=== PATIENT | female | born 1985 | race Caucasian/White ===

== ENCOUNTER → 2018-09-05 12:56 | Outpatient (CLI) | payer BC, SELFPAY ==
--- NOTE | 2018-09-05 13:00 | US_ITS ---
US OB /maternal detail: INDICATION: ITS.REASON: US OB Complete ORDERING PHYSICIAN: Krista Holm MD PATIENT AGE: 33 years TECHNIQUE: ultrasound transabdominal scanning. COMPARISON: No previous relevant studies. FINDINGS: Single viable intrauterine gestation. Breech position. Placenta: Anterior placenta grade 1. There is average amount fluid. The cervix appears satisfactory. Closed and measuring 3.5 cm in length. Complete survey performed and was unremarkable on the submitted images as in PACS. No discrete anomalies identified on survey imaging by technologist. Active fetus. Three-vessel cord with satisfactory umbilical cord insertion. 4- chamber heart noted. Nonspecific echogenic focus in the left ventricle of questionable clinical significance Survey of brain & ventricles unremarkable. Face and neck survey unremarkable. Diaphragm and chest views unremarkable. Abdomen: Both kidneys noted and unremarkable. Stomach noted and satisfactory. Spine: Survey of the spine satisfactory with no anomalies identified nor imaged. Both arms and legs noted. Amniotic Fluid: Adequate. Maternal adnexa: No significant findings. Measurements: Average ultrasound age 20w4d. Gestational Age 20w3d. Estimated due date by ultrasound age 0401/19/2019. Estimated weight 359 grams. BPD = 20w5d OFD = 21w1d HC = 20w2d AC = 20w6d FL = 20w3d Growth Percentile= 51% Heart Rate = 136 Cerebellum = 20w4d Humerus = 21w0d HC/AC is 1.14 (1.09-1.26). CI is 76% (70-86%). FL/BPD is 68%. FL/AC is 21%. IMPRESSION: There is a single live fetus which is in breech presentation. Average ultrasound age is 20 weeks and 4 days. All parameters correlate. heart and body motion noted. Echogenic intracardiac focus noted which is nonspecific. Otherwise unremarkable 20 week ultrasound Anterior grade 1 placenta
== END ==
PROVIDERS: PCP Obstetrics & Gynecology; Visit Provider Obstetrics & Gynecology
DX: Z36.0 Encounter for antenatal screening for chromosomal anomalies (principal)
CPT/HCPCS: 76811

== ENCOUNTER → 2018-10-18 08:49 | Outpatient (CLI) | payer BC, SELFPAY | PROVIDERS: Visit Provider Obstetrics & Gynecology | DX: Z34.90 Encounter for supervision of normal pregnancy, unspecified, unspecified trimester (principal) | CPT/HCPCS: 36415; 82947 ==

== ENCOUNTER → 2018-12-21 17:13 | Outpatient (CLI) | payer OTHER, SELFPAY | PROVIDERS: Visit Provider Obstetrics & Gynecology | DX: Z34.90 Encounter for supervision of normal pregnancy, unspecified, unspecified trimester (principal) | CPT/HCPCS: 86403 ==

== ENCOUNTER 2019-01-18 02:55 | Inpatient (IN) ==
[2019-01-18 06:16] LABS: Basophils % 0.7 % (0.1-2.0); Eosinophils # 0.1 K/mm3 (0.0-0.4); Eosinophils % 1.1 % (0.1-12.0); Hematocrit 34.8 % (37.0-47.0); Hemoglobin 11.1 g/dL (12.2-16.2); Lymphocytes # 1.5 K/mm3 (0.7-4.5); Mean Corpuscular HGB Conc 31.8 g/dL (31.8-35.4); Mean Corpuscular Hemoglobin 25.5 pg (27.0-31.2); Mean Corpuscular Volume 80.3 fl (81-99); Mean Platelet Volume 8.2 fl (7.4-10.4); Monocytes # 0.4 K/mm3 (0.1-1.0); Monocytes % 6.1 % (1.7-9.3); Neutrophils % 67.2 % (37.0-80.0); Platelet Count 230 K/mm3 (142-424); Red Blood Count 4.33 M/mm3 (4.20-5.40); Red Cell Distribution Width 14.6 % (11.5-17.5)
--- NOTE | 2019-01-18 13:39 | Progress Note ---
[facility] Anesthesia Checklist - Structural Data Admitted From: Inpatient Planned Operative Procedure/s: labor epidural Consent for Planned Operative Procedure(s) Verified: Yes - Airway Assessment C-Spine Mobility Assessed: Yes TMJ Mobility Assessed: Yes Dentition: Good Dentition - Neurological Assessment Level of Consciousness: Awake, Alert, Appropriate - Anesthesia Plan Anesthesia Risk discussed: Yes Anesthesia Plan: Verified ASA Class: II Anesthesia Type: Epidural [facility] History I have reviewed the patient's past medical history: Yes Medical History: Reports:: Migraine Denies:: Anxiety, Depression, Seizures *Have you ever received a pneumonia vaccine?: No *Have you received a flu vaccine this season?: No Other Surgeries: No: Amputation: No Fractures: No - *Social History Smoking Status: Never smoker Alcohol Intake: never Substance Use Type: denies use *Occupational Status:: employed - Psychiatric History Pschychiatric History:: Denies:: Anxiety, Depression Family Hx:: No significant family history Para: 6
[2019-01-18 17:35] LABS: Microscopic, Urine URINE MICROSCOPIC (MICROSCOPIC)
[2019-01-18 17:37] LABS: Appearance,Urine CLEAR (Clear); Bilirubin,Urine Negative (Negative); Blood, Urine Negative (Negative); Color,Urine YELLOW (Yellow); Glucose,Urine (UA) Negative (Negative); Ketones,Urine TRACE (Negative); Leukocyte Esterase,Urine Negative (Negative); Protein,Urine Negative (Negative); Specific Gravity, Urine <= 1.005 (1.005-1.030); Urobilinogen,Urine 0.2 EU/dl (0.2)
--- NOTE | 2019-01-18 17:50 | History & Physical Report ---
OB - H&P: HPI Antepartum - History of Present Illness Chief complaint: IOL History of present illness: 33 year old @ 39 11/16 admitted for IOL. complicated by grand multiparity, AMA, mild anemia and vulvar varicosities. 20 week ultrasound showed isolated echogenic cardiac focus and she declined f/u with MFM for subsequent evaluation. She has a history of 6 previous vaginal deliveries and a 4th degree laceration with G1 delivery. care [facility] Dr. Holm after transfer from [place]; previous records received and reviewed. - History of Present Criteria for establishing EDC:: LMP confirmed by 1st trimester US care: good care [facility] History I have reviewed the patient's past medical history: Yes Medical History: Reports:: Migraine Denies:: Anxiety, Depression *Have you ever received a pneumonia vaccine?: No *Have you received a flu vaccine this season?: No Other Surgeries: No: Amputation: No Fractures: No - *Social History Smoking Status: Never smoker Alcohol Intake: never Substance Use Type: denies use *Occupational Status:: employed *Travel in the last 8 weeks: None - Psychiatric History Pschychiatric History:: Denies:: Anxiety, Depression Family Hx:: No significant family history Para: 6 Review of Systems - Review of Systems CONSTITUTIONAL: no fever/chills HEENT: no oral lesions PULMONARY: no shortness of breath or difficulty breathing CV: no racing heart, palpitations or chest pain ABD: no abdominal pain, N/V : irregular contractions SKIN: no new rash or skin lesions EXT: 1+ edema NEURO: no mental status changes PSYCH: no anxiety/depression Meds Home Medications Medication Instructions Recorded Confirmed Type 1 tab PO DAILY 07/13/18 01/18/19 History vitamin,calcium,alauuhuj-rvau-gxsuk acid tablet magnesium 250 mg tablet 250 mg PO DAILY 11/08/18 01/18/19 History Allergies Allergy/AdvReac Type Severity Reaction Status Date / Time hydrocodone Allergy Mild Verified 01/15/19 08:50 paroxetine Allergy Mild Verified 01/15/19 08:50 OB - H&P: Exam - Physical Exam Vital signs: Temp Pulse Resp BP Pulse Ox 97.9 F 77 20 128/62 100 01/18/19 06:10 01/18/19 06:10 01/18/19 06:10 01/18/19 06:10 01/18/19 06:10 Narrative: CONSTITUTIONAL: no acute distress HEENT: mucous membranes moist PULMONARY: breathing unlabored without audible wheezes CV: no tachycardia or visible JVD; normal LE peripheral pulses ABD: soft, NT/ND, no guarding. Gravid uterus. : cervix 3/50/-1. AROM with copious clear fluid. IUPC and FSE placed w ithout difficulty. SKIN: no visible rash or lesions HEME: no lymphadenopathy EXT: 1+ edema LEs NEURO: alert/oriented, no altered mental status PSYCH: appropriate mood and demeanor without visible anxiety/depression NST: Basline: 150 Variability: moderate Accelerations: yes Decelerations: no Impression: Reactive, Category 1 OB - Results - Labs Labs: Short CBC 01/18/19 Range/Units 06:00 WBC 6.0 (4.8-10.8) K/mm3 Hgb 11.1 L (12.2-16.2) g/dL Hct 34.8 L (37.0-47.0) % Plt Count 230 (142-424) K/mm3 OB - A/P Antepartum (1) 39 weeks gestation of Current visit: Yes Status: Acute (2) Grand multiparity with current Problem details: Current visit: No Status: Acute (3) AMA (advanced maternal age) multigravida 35+ Current visit: No Status: Acute (4) Vulvar varices during Current visit: No Status: Acute (5) echogenic intracardiac focus on ultrasound Current visit: No Status: Acute (6) History of fourth degree perineal laceration Problem details: G1 Current visit: No Status: Acute (7) Anemia affecting Current visit: Yes Status: Acute - Additional Plan Additional Information:: Admission for IOL S/P amniotomy; continue pitocin augmentation Continuous monitoring Anticipate
--- NOTE | 2019-01-18 18:00 | Procedure Note ---
- Delivery Note Delivery Date:: 01/18/19 Delivery Time:: 16:15 Anesthesia Type: Epidural Was labor medically induced?: Yes Induction method: per pitocin protocol Gestational age (weeks): 39 delivered prior to 39 weeks?: No Gender: Female at 1 minute: 9 at 5 minutes: 9 Delivery Procedure:: Spontaneous vaginal delivery of vigorous liveborn over intact perineum. Apgars: 9 & 9 Delivery uncomplicated; no nuchal cord or shoulder dystocia with delivery Infant taken to warmer for nursing assessment and suction immediately after umbilical cord clamped/cut Placenta spontaneously expressed and examined; noted to be complete/intact. Vulva, vagina, and cervix inspected; first degree laceration repaired with 3-0 vicryl for hemostasis. EBL: 200cc All sponge/needle/instrument counts correct at conclusion of procedure Disposition: Mom/baby stable to recovery in LDRP Laceration:: vaginal Placental Delivery Description: Spontaneous
[2019-01-18 18:03] LABS: Bacteria,Urine Trace /lpf; WBC,Urine Occasional #/hpf (0-3)
[2019-01-19 06:59] LABS: Hematocrit 27.8 % (37.0-47.0)
--- NOTE | 2019-01-19 13:09 | Progress Note ---
Internal Medicine - PN: Subj *Date: 01/19/19 *Time: 13:07 Interval history: PPD #1 No complaints Tolerating regular diet, ambulating and voiding without difficulty Lochia normal Exam Vital signs and Labs for Last 24 Hours: Temp Pulse Resp BP Pulse Ox 97.9 F 77 20 128/62 100 01/18/19 06:10 01/18/19 06:10 01/18/19 06:10 01/18/19 06:10 01/18/19 06:10 Laboratory Results - last 24 hr 01/18/19 12:35: Urine Color Yellow, Urine Appearance Clear, Urine pH 7.0, Ur Specific [place] <= 1.005, Urine Protein Negative, Urine Glucose (UA) Negative, Urine Ketones Trace, Urine Blood Negative, Urine Nitrate Negative, Urine Bilirubin Negative, Urine Urobilinogen 0.2, Ur Leukocyte Esterase Negative, Urine WBC Occasional, Urine Bacteria Trace 01/19/19 06:37: Hgb 9.0 L, Hct 27.8 L I & O for Last 24 hours: Intake & Output 01/17/19 01/18/19 01/19/19 01/20/19 11:59 11:59 11:59 11:59 Weight 184 lb Narrative: CONSTITUTIONAL: no acute distress HEENT: mucous membranes moist PULMONARY: breathing unlabored without audible wheezes CV: no tachycardia or visible JVD; normal LE peripheral pulses ABD: soft, NT/ND, no guarding : fundus firm at/below umbilicus SKIN: no visible rash or lesions EXT: 1+ edema LEs NEURO: alert/oriented, no altered mental status PSYCH: appropriate mood and demeanor without visible anxiety/depression Assessment and Plan (1) 39 weeks gestation of Current visit: Yes Status: Acute Category: Medical Code(s): Z3A.39 - 39 weeks gestation of (2) Grand multiparity with current Problem details: Current visit: No Status: Acute Category: Medical Code(s): O09.40 - Supervision of with grand multiparity, unspecified trimester (3) AMA (advanced maternal age) multigravida 35+ Current visit: No Status: Acute Category: Medical Code(s): O09.529 - Supervision of elderly multigravida, unspecified trimester (4) Vulvar varices during Current visit: No Status: Acute Category: Medical Code(s): O87.8 - Other venous complications in the puerperium; I86.3 - Vulval varices (5) echogenic intracardiac focus on ultrasound Current visit: No Status: Acute Category: Medical Code(s): O28.3 - Abnormal ultrasonic finding on screening of mother (6) History of fourth degree perineal laceration Problem details: G1 Current visit: No Status: Acute Category: Medical Code(s): Z87.59 - Personal history of other complications of , childbirth and the puerperium (7) Anemia affecting Current visit: Yes Status: Acute Category: Medical Code(s): O99.019 - Anemia complicating , unspecified trimester (8) Vaginal delivery Current visit: Yes Status: Acute Category: Medical Code(s): O80 - Encounter for full-term uncomplicated delivery - Assessment and plan all Dx Assessment and Plan for all problems:: Continue routine care Anticipate discharge home tomorrow
[2019-01-19 21:42] VITALS: BP 124/66
--- NOTE | 2019-01-20 11:21 | Discharge Summary ---
General - General Admission date:: 01/18/19 Discharge date: 01/20/19 HPI HPI: 33 yo admitted for IOL at 39 2/7 S/P without complications course uneventful, with normal progress Ambulating and voiding without difficulty; tolerating regular diet Lochia appropriate Asymptomatic with bbfaj-ys-vcpozjl anemia Ready for discharge home on PPD #2 Hospital Course Hospital Course: see HPI Rhogam Administration: Not Indicated Objective Vital signs: Temp Pulse Resp BP Pulse Ox 98.1 F 65 18 124/66 98 01/19/19 20:16 01/19/19 20:16 01/19/19 20:16 01/19/19 20:16 01/19/19 20:16 Narrative: CONSTITUTIONAL: no acute distress HEENT: mucous membranes moist PULMONARY: breathing unlabored without audible wheezes CV: no tachycardia or visible JVD; normal LE peripheral pulses ABD: soft, NT/ND, no guarding : fundus firm at/below umbilicus SKIN: no visible rash or lesions EXT: 1+ edema LEs NEURO: alert/oriented, no altered mental status PSYCH: appropriate mood and demeanor without anxiety/depression DS: Diagnosis - Discharge Diagnosis (1) 39 weeks gestation of Status: Acute (2) Grand multiparity with current Status: Acute Problem details: (3) AMA (advanced maternal age) multigravida 35+ Status: Acute (4) Vulvar varices during Status: Acute (5) echogenic intracardiac focus on ultrasound Status: Acute (6) History of fourth degree perineal laceration Status: Acute Problem details: G1 (7) Anemia affecting Status: Acute Discharge Plan - Patient Discharge Instructions ACTIVITY: Continue current activity DIET: continue same diet - Follow up Plan Disposition: Home, Self-Alf Medications: Home Medications Medication Instructions Recorded Confirmed Type 1 tab PO DAILY 07/13/18 01/18/19 History vitamin,calcium,azibspjj-ycov-lbxns acid tablet magnesium 250 mg tablet 250 mg PO DAILY 11/08/18 01/18/19 History Ibuprofen [Motrin 400mg 800 mg PO Q6HP PRN #30 tab 01/20/19 Rx tablet] Oxycodone HCl [OxyIR 5mg tablet] 10 mg PO Q4HP PRN #30 tab 01/20/19 Rx Prescriptions/Medication Reconciliation: New Ibuprofen [Motrin 400mg tablet] 800 mg PO Q6HP PRN #30 tab PRN Reason: Moderate Pain Oxycodone HCl [OxyIR 5mg tablet] 10 mg PO Q4HP PRN #30 tab PRN Reason: Severe Pain Continue vitamin,calcium,cuvlmqaq-hyom-qzwla acid tablet 1 tab PO DAILY magnesium 250 mg tablet 250 mg PO DAILY
== END 2019-01-20 14:40 | disposition home or self-care (01) | DRG 807 ==
LOC: OB 05:24
PROVIDERS: ADMIT Obstetrics & Gynecology; ATTEND Obstetrics & Gynecology
CPT/HCPCS: C1758

== ENCOUNTER 2020-07-26 11:13 | Emergency (ER) | payer OTHER, SELFPAY ==
[2020-07-26 11:23] VITALS: BP 113/83; PULSE 90; RESP 21; TEMP 37; O2SAT 99; BMI 24.0
--- NOTE | 2020-07-26 11:31 | HMH.EDUTC ---
[facility] Disposition Clinical Impression: Bronchitis Sinusitis Qualifiers: Sinusitis location: unspecified location Chronicity: unspecified Qualified Code(s): J32.9 - Chronic sinusitis, unspecified Disposition: Home, Self-Care Condition on Discharge: Good Instructions: Sinusitis, Acute Bronchitis, DI for Sinusitis Additional Instructions: ? Start antibiotic today. Be sure to complete entire prescription even if feeling better ? Monitor temp. Tylenol every 4 hours as needed and / or ibuprofen every 6 hours as needed ( As long as your primary care physician has told you that it ok to take both. For fever/aches/pains ER if no less than 101 despite Tylenol or Motrin ? Humidifier/vaporizer or hot steamy shower ? Mucinex during the day for your cough and cough suppressant only at night. Be sure to drink lots of water. Insurance may not cover a prescriptions for mucinex. Might be cheaper to get 400mg tablets and take 2 tablet in the morning, mid-day and evening with lots of water. Start steroid today. Helps with inflammation therefore, cough and wheezing. Follow directions on the package. Reviewed side effects. Patient reports taking them before. Follow up IMMEDIATELY for new or worsening of symptoms OR no noticeable improvement over the next 48-72 hours. 911 immediately for any life threatening symptoms such as chest pain or difficulty breathing Prescriptions: Fluticasone Propionate [Flonase 50mcg nasal spray 16gm] 1 spr NS DAILY #1 bottle Transmission Status: Received by [facility] # methylPREDNISolone [Medrol 4mg tab] 4 mg PO DIRECTED #21 tab Transmission Status: Received by [facility] # Azithromycin [Z-Jose Miguel 250mg Tab] 250 mg PO DIRECTED #6 tab Transmission Status: Received by [facility] # Referrals: PCP,No [Primary Care Provider] - As needed Forms: Work/School Release Time of Disposition: 11:40 Medical Decision Making - Herman Inquiry Pt receiving controlled substance: No Herman was queried for this patient: No Vital Signs: 07/26/20 11:23 Temperature 98.6 F Temperature Source Oral Pulse Rate [Radial] 90 Respiratory Rate 21 Blood Pressure [Right Arm] 113/83 Blood Pressure Mean [Right Arm] 93 Blood Pressure Source [Right Arm] Automatic Cuff Blood Pressure Position [Right Arm] Sitting 02 Sat by Pulse Oximetry 99 Oxygen Delivery Method Room Air - Lab Data Lab results reviewed: Yes: I reviewed the patient's lab results. Lab Results 07/26/20 11:33: Tst Clinic Negative Orders (Tests/Meds): ED MEDICATIONS Discontinued Medications Generic Name Dose Route Start Last Admin Trade Name Hailey PRN Reason Stop Dose Admin Ceftriaxone Sodium 1 gm 07/26/20 11:49 07/26/20 11:50 Ceftriaxone 1gm Vial IM 07/26/20 11:50 1 gm ONCE ONE Administration Protocol Lidocaine HCl 0 ml 07/26/20 11:49 07/26/20 11:50 Lidocaine 1% 5ml Pf Vial IM 07/26/20 11:50 2.1 ml ONCE ONE Administration Medical Decision Narrative: discussed CXR and patient declined at this time Advised is symptoms worsened to follow up for CXR and further treatment [facility] HPI - General Stated complaint: Congestion Time Seen by Provider: 07/26/20 11:31 Mode of Arrival: Ambulatory Source of Information: Patient Limitations: No Limitations Description of Symptoms (Recalled from Triage Doc. by RN): chest congestion, cough, sob since tuesday HEENT Symptoms (Recalled from RN notes): Yes Resp Symptoms (Recalled from RN notes): No Skin Symptoms (Recalled from RN notes): No MS Symptoms (Recalled from RN notes): No Functional Status (Recalled from RN notes): wnl - History of Present Illness Provider Complaint: Patient states that she has been having sinus pain and pressure, cough, drainage unable to breath out of her nose and feels like it is moving into her chest States that she hasnt felt well since Tue Denies known fever. States that she isnt coughing anythi
[2020-07-26 11:55] LABS: UTC Pregnancy Test, Urine Negative (Negative)
[2020-07-26 12:03] VITALS: BP 113/83; PULSE 90; RESP 21; TEMP 37; O2SAT 99
== END 2020-07-26 12:04 | disposition home or self-care (01) ==
PROVIDERS: Emergency Provider Nurse Practitioner
DX: J32.9 Chronic sinusitis, unspecified (principal); G43.709 Chronic migraine without aura, not intractable, without status migrainosus; Z88.5 Allergy status to narcotic agent
CPT/HCPCS: 81025; 96372; 99201

== ENCOUNTER → 2020-08-13 10:29 | Outpatient (CLI) | payer OTHER, SELFPAY ==
[2020-08-13 10:54] LABS: Basophils % 0.9 % (0.1-2.0); Eosinophils # 0.1 K/mm3 (0.0-0.4); Eosinophils % 3.4 % (0.1-12.0); Hematocrit 37.8 % (37.0-47.0); Hemoglobin 11.1 g/dL (12.2-16.2); Lymphocytes % 28.4 % (10-50); Mean Corpuscular HGB Conc 29.4 g/dL (31.8-35.4); Mean Corpuscular Hemoglobin 25.7 pg (27.0-31.2); Mean Corpuscular Volume 87.6 fl (81-99); Mean Platelet Volume 8.9 fl (7.4-10.4); Monocytes # 0.2 K/mm3 (0.1-1.0); Monocytes % 5.7 % (1.7-9.3); Neutrophils # 2.3 K/mm3 (1.8-7.8); Neutrophils % 61.6 % (37.0-80.0); Platelet Count 275 K/mm3 (142-424); Red Blood Count 4.31 M/mm3 (4.20-5.40); Red Cell Distribution Width 15.3 % (11.5-17.5); White Blood Count 3.7 K/mm3 (4.8-10.8)
[2020-08-13 13:31] LABS: Chloride 104 mmol/L (98-107)
[2020-08-13 13:32] LABS: Potassium 4.5 mmoL/L (3.5-5.1); Sodium 138 mmol/L (136-145)
[2020-08-13 13:34] LABS: Alanine Aminotransferase 14 U/L (12-78); Albumin/Globulin Ratio 1.7 (1.1-1.8); Alkaline Phosphatase 33 U/L (38-126); Anion Gap 11.5 mEq/L (5-15); Aspartate Amino Transferase 22 U/L (14-36); Bilirubin,Total 0.3 mg/dl (0.2-1.3); Blood Urea Nitrogen 13 mg/dl (7-17); Carbon Dioxide 27 mmol/L (22.0-30.0); Cholesterol 159 mg/dl (140-200); Estimated Glomerular Filt Rate 94 ml/min (>60); GFR (African American) 114 ML/MIN (>60); Globulin 2.3 g/dL (1.3-3.2); Total Protein,Serum 6.3 g/dl (6.3-8.2); Triglycerides 29 mg/dl (30-150); VLDL Cholesterol 6 mg/dL (0-40)
[2020-08-13 13:35] LABS: Calcium 8.9 mg/dl (8.4-10.2); Chol/HDL Ratio 1.8 (1-3.5); Glucose 90 mg/dl (74-100); Glucose,Fasting 90 mg/dl (74-100); HDL Cholesterol 86 mg/dl (40-60)
[2020-08-13 13:46] LABS: Direct LDL Cholesterol 61.18 mg/dL (100-129)
[2020-08-13 14:03] LABS: Thyroid Stimulating Hormone 1.31 uIU/mL (0.465-4.68)
[2020-08-14 11:47] LABS: FSH 6.5 mIU/mL (.); LH 21.1 mIU/mL (.)
== END ==
PROVIDERS: Visit Provider Obstetrics & Gynecology
DX: Z00.00 Encounter for general adult medical examination without abnormal findings (principal); R09.89 Other specified symptoms and signs involving the circulatory and respiratory systems
CPT/HCPCS: 36415; 80053; 80061; 82670; 82947; 83001; 83002; 84443; 85025

== ENCOUNTER → 2020-11-28 17:42 | Outpatient (CLI) | payer OTHER, SELFPAY ==
[2020-11-28 18:12] LABS: Basophils % 0.6 % (0.1-2.0); Eosinophils # 0.1 K/mm3 (0.0-0.4); Eosinophils % 1.5 % (0.1-12.0); Hematocrit 37.3 % (37.0-47.0); Hemoglobin 11.6 g/dL (12.2-16.2); Lymphocytes # 1.6 K/mm3 (0.7-4.5); Lymphocytes % 26.8 % (10-50); Mean Corpuscular HGB Conc 31.1 g/dL (31.8-35.4); Mean Corpuscular Hemoglobin 25.7 pg (27.0-31.2); Mean Corpuscular Volume 82.8 fl (81-99); Mean Platelet Volume 9.3 fl (7.4-10.4); Monocytes # 0.3 K/mm3 (0.1-1.0); Monocytes % 5.2 % (1.7-9.3); Neutrophils # 3.9 K/mm3 (1.8-7.8); Neutrophils % 65.9 % (37.0-80.0); Platelet Count 259 K/mm3 (142-424); Red Cell Distribution Width 15.6 % (11.5-17.5); White Blood Count 5.9 K/mm3 (4.8-10.8)
[2020-11-30 16:58] LABS: Progesterone 33.6 ng/mL (.); Rapid Plasma Reagin Ab Titer Non Reactive (NonRea<1:1)
[2020-12-01 10:33] LABS: HIV Screen 4th Generation wRfx Non Reactive (Non Reactive)
[2020-12-01 11:49] LABS: Hepatitis B Surface Antigen Negative (Negative); Hepatitis C Antibody <0.1 s/co ratio (0.0-0.9); Rubella Antibodies, IgG 1.55 index (Immune >0.99)
== END ==
PROVIDERS: Visit Provider Obstetrics & Gynecology
DX: Z34.90 Encounter for supervision of normal pregnancy, unspecified, unspecified trimester (principal)
CPT/HCPCS: 36415; 84144; 85025; 86592; 86703; 86762; 86850; 87340; 87380; G0432

== ENCOUNTER → 2020-12-11 12:55 | Outpatient (CLI) | payer OTHER, SELFPAY ==
--- NOTE | 2020-12-11 12:56 | US_ITS ---
PROCEDURE: US OB <= 14 WEEKS FETUS CLINICAL INDICATION: US OB Dates COMPARISON: US OBFEMAT US OB /maternal detail from 09/05/2018 FINDINGS: There is an intrauterine gestational sac present. The sac is somewhat irregular in shape. A yolk sac is present. There is an area measured as a pole however, this is uncertain. No heart tones are apparent. Moderate amount fluid is present anterior to the gestational sac and may represent hemorrhage. The there is a left corpus luteum cyst at 2.6 cm.. IMPRESSION: There is an intrauterine gestational sac which has somewhat irregular contour. A yolk sac is present however cannot confirm the definite presence of a pole. Cannot confirm viability at this time. Fluid is present anterior to the gestational sac as well. Suggest a follow-up ultrasound in 1 week as well as correlation with serial beta HCGs. Dictated by: Kurt Macias MD 12/11/2020 18:09 Kurt Macias MD in [place] 12/11/2020 18:09
[2020-12-11 15:47] LABS: HCG,Quantitative 27185 mIU/ml (0-5.42)
== END ==
PROVIDERS: PCP Obstetrics & Gynecology; Visit Provider Obstetrics & Gynecology
DX: O26.841 Uterine size-date discrepancy, first trimester (principal)
CPT/HCPCS: 36415; 76801; 84702

== ENCOUNTER → 2020-12-11 13:50 | Outpatient (CLI) | payer OTHER, SELFPAY | PROVIDERS: Visit Provider Obstetrics & Gynecology | DX: Z32.00 Encounter for pregnancy test, result unknown (principal) | CPT/HCPCS: 36415; 84702 ==

== ENCOUNTER → 2020-12-13 12:37 | Outpatient (CLI) | payer OTHER, SELFPAY ==
[2020-12-13 14:49] LABS: HCG,Quantitative 35529 mIU/ml (0-5.42)
== END ==
PROVIDERS: Visit Provider Obstetrics & Gynecology
DX: Z32.00 Encounter for pregnancy test, result unknown (principal)
CPT/HCPCS: 36415; 84702

== ENCOUNTER → 2020-12-18 10:25 | Outpatient (CLI) | payer OTHER, SELFPAY ==
--- NOTE | 2020-12-18 10:25 | US_ITS ---
PROCEDURE: US OB <= 14 WEEKS FETUS CLINICAL INDICATION: US OB- dates and viability f/u COMPARISON: US US OB <= 14 WEEKS FETUS from 12/11/2020 FINDINGS: An intrauterine gestational sac is present with a pole with a crown-rump length of 0.46cm correlating to gestational age of 6weeks 2days. heart tones are present with an FHR of 114bpm. Yolk sac is noted. There is persistent heterogeneous echogenicity along the superior aspect of the gestational sac. Gestational sac also has a somewhat irregular contour. A pole is identified at this time with a crown-rump length of 0.46 cm corresponding to a gestational age of 6 weeks and 2 days. heart tones are present. IMPRESSION: Live intrauterine gestation at 6 weeks 2 days. There is persistent subchorionic bleed superiorly with persistent mild irregularity of the gestational sac. Estimated due date by Ultrasound is 08/11/2021 Dictated by: Kurt Macias MD 12/18/2020 17:45 Kurt Macias MD in [facility] 12/18/2020 17:45
== END ==
PROVIDERS: PCP Obstetrics & Gynecology; Visit Provider Obstetrics & Gynecology
DX: O26.841 Uterine size-date discrepancy, first trimester (principal); O26.20 Pregnancy care for patient with recurrent pregnancy loss, unspecified trimester
CPT/HCPCS: 76801

== ENCOUNTER → 2021-01-23 10:18 | Outpatient (CLI) | payer OTHER, SELFPAY | PROVIDERS: PCP Obstetrics & Gynecology; Visit Provider Obstetrics & Gynecology | DX: O09.529 Supervision of elderly multigravida, unspecified trimester (principal) ==

== ENCOUNTER → 2021-01-30 09:31 | Outpatient (CLI) | payer OTHER, SELFPAY ==
--- NOTE | 2021-01-30 09:34 | US_ITS ---
PROCEDURE: US OB <= 14 WEEKS FETUS CLINICAL INDICATION: Vaginal bleeding COMPARISON: US US OB <= 14 WEEKS FETUS from 12/18/2020 FINDINGS: An intrauterine gestational sac is present with a pole with a crown-rump length of 6.71cm correlating to gestational age of 13weeks. heart tones are present with an FHR of 139bpm. There is an area of heterogeneous echogenicity along the inferior aspect of the placenta and may represent residual subchorionic hemorrhage. This measures approximately 5 x 5 cm and is in the lower uterine segment region. Placenta is posterior and there is a previa present at this time. IMPRESSION: Live IUP at 13 weeks. Residual subchorionic hemorrhage with placenta previa. Continued follow-up suggested. Estimated due date by Ultrasound is 08/07/2021 Dictated by: Kurt Macias MD 01/30/2021 18:34 Kurt Macias MD in [facility] 01/30/2021 18:34
== END ==
PROVIDERS: Visit Provider Obstetrics & Gynecology
DX: O20.9 Hemorrhage in early pregnancy, unspecified (principal); Z34.90 Encounter for supervision of normal pregnancy, unspecified, unspecified trimester
CPT/HCPCS: 76801

== ENCOUNTER → 2021-03-23 12:58 | Outpatient (CLI) | payer OTHER, SELFPAY ==
--- NOTE | 2021-03-23 12:58 | US_ITS ---
PROCEDURE: US OB >= 14 WEEKS FETUS CLINICAL INDICATION: OB complete COMPARISON: US US OB <= 14 WEEKS FETUS from 01/30/2021 FINDINGS: Single viable intrauterine gestation. Cephalic position. Placenta: Posteriorplacenta grade 1. There is average amount fluid. The cervix appears satisfactory. Closed and measuring 4 centimeters in length. Complete survey performed and was unremarkable on the submitted images as in PACS. No discrete anomalies identified on survey imaging by technologist. Active fetus. Three-vessel cord with satisfactory umbilical cord insertion. 4- chamber heart noted. Survey of brain & ventricles Unremarkable. Face and neck survey unremarkable. Diaphragm and chest views unremarkable. Abdomen: Both kidneys noted and unremarkable. Stomach noted and satisfactory. Spine: Survey of the spine satisfactory with no anomalies identified nor imaged. Both arms and legs noted. Amniotic Fluid: Adequate. Maternal adnexa: No significant findings. Measurements: Average ultrasound age 19weeks 6days. Gestational Age 19weeks 6days Estimated due date by ultrasound age 1108/11/2021. Estimated weight 329g BPD = 19weeks 5days OFD = 20weeks 2days HC = 19weeks 2days AC = 20weeks 2days FL = 20weeks 1day Growth Percentile= 33Percent% Heart Rate = 144bpm Cerebellum = 20weeks 4days Humerus = 19weeks 6days HC/AC is 1.1 CI is 0.75 FL/BPD is 0.72 FL/AC is 0.22 IMPRESSION: Single living intrauterine fetus currently in cephalic presentation with composite ultrasound age of 19 weeks 6 days with BENI by ultrasound of 08/11/2021. face and neck were not adequately seen. This should be correlated upon follow-up obstetrical ultrasound. 5 millimeter choroid plexus cyst incidentally noted. Remainder of structures were adequately seen and normal in appearance. Dictated by: Kenny Henriquez 03/23/2021 15:45 Kenny Henriquez in [facility] 03/23/2021 15:45
== END ==
PROVIDERS: PCP Obstetrics & Gynecology; Visit Provider Obstetrics & Gynecology
DX: Z34.90 Encounter for supervision of normal pregnancy, unspecified, unspecified trimester (principal)
CPT/HCPCS: 76805

== ENCOUNTER → 2021-05-04 15:36 | Outpatient (CLI) | payer OTHER, SELFPAY ==
[2021-05-04 16:27] LABS: Basophils % 0.3 % (0.1-2.0); Eosinophils # 0.1 K/mm3 (0.0-0.4); Eosinophils % 1.4 % (0.1-12.0); Hematocrit 31.4 % (37.0-47.0); Hemoglobin 9.7 g/dL (12.2-16.2); Lymphocytes # 1.5 K/mm3 (0.7-4.5); Lymphocytes % 18.2 % (10-50); Mean Corpuscular Hemoglobin 25.9 pg (27.0-31.2); Mean Corpuscular Volume 83.5 fl (81-99); Mean Platelet Volume 8.3 fl (7.4-10.4); Monocytes # 0.4 K/mm3 (0.1-1.0); Monocytes % 5.3 % (1.7-9.3); Neutrophils # 5.9 K/mm3 (1.8-7.8); Neutrophils % 74.7 % (37.0-80.0); Platelet Count 249 K/mm3 (142-424); Red Blood Count 3.76 M/mm3 (4.20-5.40); White Blood Count 7.9 K/mm3 (4.8-10.8)
== END ==
PROVIDERS: Visit Provider Obstetrics & Gynecology
DX: Z34.90 Encounter for supervision of normal pregnancy, unspecified, unspecified trimester (principal)
CPT/HCPCS: 36415; 85025

== ENCOUNTER → 2021-07-06 17:00 | Outpatient (CLI) | payer OTHER, SELFPAY | PROVIDERS: Visit Provider Obstetrics & Gynecology | DX: Z34.90 Encounter for supervision of normal pregnancy, unspecified, unspecified trimester (principal) | CPT/HCPCS: 86403 ==

== ENCOUNTER → 2021-07-09 13:19 | Outpatient (CLI) | payer OTHER, SELFPAY ==
--- NOTE | 2021-07-09 13:19 | US_ITS ---
PROCEDURE: US OB FOLLOW UP CLINICAL INDICATION: Growth and MANE FINDINGS: The following parameters are obtained: Single live fetus is present in cephalic presentation. The cervix is closed measuring 3 cm in length. The placenta is posterior and lateral and grade 2. Average ultrasound age is Average 35weeks 6days Estimated due date by ultrasound is 08/07/2021. Estimated weight is 2,760g. This is 58th percentile BPD: 36weeks 5days OFD: 35 weeks 0 days HC: 35weeks 2days AC: 36weeks FL: 35weeks 3days heart rate: bpm. HC/AC: 0.98 Cephalic index: 0.83 FL/BPD: 0.76 FL/AC: 0.22 Amniotic fluid index: 14.4cm The femur length is 35weeks 3days No obvious anomalies evident. Previously there was a choroid plexus cyst not demonstrated on today's exam. IMPRESSION: Live IUP in cephalic presentation with an average ultrasound age 35 weeks 6 days and an estimated weight of 2760 g which is 58th percentile. MANE normal at 14 cm Please see above for detail Dictated by: Kurt Macias MD 07/09/2021 18:01 Kurt Macias MD in [facility] 07/09/2021 18:01
== END ==
PROVIDERS: PCP Obstetrics & Gynecology; Visit Provider Obstetrics & Gynecology
DX: O36.60X0 Maternal care for excessive fetal growth, unspecified trimester, not applicable or unspecified (principal)
CPT/HCPCS: 76816

== ENCOUNTER 2021-08-04 05:29 | Inpatient (IN) | payer OTHER, SELFPAY ==
[2021-08-04 05:39] VITALS: BMI 28.9
[2021-08-04 06:25] LABS: Coronavirus 19, PCR Not Detected (NotDetected); Influenza A, PCR Not Detected (NotDetected); Influenza B, PCR Not Detected (NotDetected); Microscopic, Urine URINE MICROSCOPIC (MICROSCOPIC)
[2021-08-04 06:30] LABS: Basophils % 0.6 % (0.1-2.0); Eosinophils # 0.1 K/mm3 (0.0-0.4); Eosinophils % 1.2 % (0.1-12.0); Hematocrit 35.6 % (37.0-47.0); Lymphocytes # 1.4 K/mm3 (0.7-4.5); Lymphocytes % 18.7 % (10-50); Mean Corpuscular Hemoglobin 26.8 pg (27.0-31.2); Mean Corpuscular Volume 86.3 fl (81-99); Mean Platelet Volume 9.9 fl (7.4-10.4); Monocytes # 0.4 K/mm3 (0.1-1.0); Neutrophils # 5.7 K/mm3 (1.8-7.8); Neutrophils % 74.4 % (37.0-80.0); Platelet Count 228 K/mm3 (142-424); Red Blood Count 4.12 M/mm3 (4.20-5.40); Red Cell Distribution Width 19.5 % (11.5-17.5); White Blood Count 7.6 K/mm3 (4.8-10.8)
[2021-08-04 06:32] LABS: Appearance,Urine CLEAR (Clear); Bilirubin,Urine Negative (Negative); Blood, Urine TRACE-I (Negative); Color,Urine YELLOW (Yellow); Glucose,Urine (UA) Negative (Negative); Ketones,Urine Negative (Negative); Leukocyte Esterase,Urine 1+ (Negative); Nitrate,Urine Negative (Negative); Protein,Urine Negative (Negative); Urobilinogen,Urine 0.2 EU/dl (0.2)
[2021-08-04 06:42] LABS: Barbiturates Screen,Urine Negative ng/ml (<200)
[2021-08-04 06:43] LABS: Benzodiazepines Screen,Urine Negative ng/ml (<200)
[2021-08-04 06:47] LABS: Cannabinoid Screen,Urine Negative ng/ml (<50)
[2021-08-04 06:48] LABS: Cocaine Screen,Urine Negative ng/ml (<300)
[2021-08-04 06:49] LABS: Methadone Screen,Urine Negative ng/ml (<300); Opiate Screen,Urine Negative ng/ml (<300)
[2021-08-04 06:50] LABS: Phencyclidine Screen,Urine Negative ng/ml (<25)
[2021-08-04 06:52] LABS: Amphetamine/Metha Screen,Urine Negative ng/ml (<1000)
[2021-08-04 07:02] LABS: Amorphous Sediment,Urine 1+ /lpf; Bacteria,Urine 1+ /lpf
[2021-08-04 07:15] VITALS: BP 116/75; PULSE 84; RESP 17; TEMP 36.8; O2SAT 98
[2021-08-04 07:19] VITALS: BP 116/75; PULSE 84; RESP 17; TEMP 36.8; O2SAT 98; BMI 28.9
--- NOTE | 2021-08-04 07:26 | HMH.PHAINT ---
MEDICATION RECONCILIATION COMPLETED ON PATIENT USING EXTERNAL FILL HISTORY FROM PHARMACY AND LIST FROM OB OFFICE. -JOSE VENTURAD
--- NOTE | 2021-08-04 08:49 | HMH.HP ---
*Admission Date: 08/04/21 *Chief complaint: Induction of labor *History of present illness: 36 yo @ 39 10/16 admitted for elective induction of labor complicated by grandmultiparity, advanced maternal age, depression and anemia Successful medical management of depression with zoloft; taking ferrous sulfate for anemia Choroid plexus cyst noted on 20 week anatomy ultrasound but resolved on subsequent 34 week ultrasound Obstetrical history significant for previous 4th degree laceration [facility] History I have reviewed the patient's past medical history: Yes Medical History: Reports:: Depression, Migraine Denies:: Anxiety, Diabetes Mellitus Type 1, Hyperlipidemia, Hypertension, Seizures *Have you ever received a pneumonia vaccine?: No *Have you received a flu vaccine this season?: No Other Medical History: Reports: Anemia Other Surgeries: No: Amputation: No Fractures: No - *Social History Smoking Status: Never smoker Alcohol Intake: never Substance Use Type: denies use *Occupational Status:: employed *Travel in the last 8 weeks: None - Psychiatric History Pschychiatric History:: Denies:: Anxiety, Depression Family Hx:: No significant family history : 14 Para: 7 LMP comments: Review of Systems - Review of Systems Review of systems:: pertinent systems reviewed and negative unless documented below - Constitutional Reports fatigue - *Genitourinary Denies abnormal vaginal bleeding - Psychiatric Reports depression Meds Home Medications Medication Instructions Recorded Confirmed Type docusate sodium 100 mg capsule 100 mg PO DAILY 07/20/21 08/04/21 History omeprazole 20 mg capsule,delayed 20 mg PO DAILY 07/20/21 08/04/21 History release Ferrous Sulfate 325 mg PO DAILY 08/04/21 08/04/21 History Ondansetron [Zofran 4mg ODT] 4 mg PO Q4HP PRN 08/04/21 08/04/21 History Vit Calc,Iron,Folic [Kpn] 1 tab PO DAILY 08/04/21 08/04/21 History Sertraline HCl [Zoloft] 150 mg PO DAILY 08/04/21 08/04/21 History Allergies Allergy/AdvReac Type Severity Reaction Status Date / Time hydrocodone Allergy Mild Verified 07/27/21 08:42 paroxetine Allergy Mild Verified 07/27/21 08:42 Exam Vital signs and Labs for Last 24 Hours: Temp Pulse Resp BP Pulse Ox 98.3 F 84 17 116/75 98 08/04/21 07:19 08/04/21 07:19 08/04/21 07:19 08/04/21 07:19 08/04/21 07:19 Laboratory Results - last 24 hr 08/04/21 06:02: Urine Color Yellow, Urine Appearance Clear, Urine pH 7.0, Ur Specific [place] 1.020, Urine Protein Negative, Urine Glucose (UA) Negative, Urine Ketones Negative, Urine Blood Trace-i, Urine Nitrate Negative, Urine Bilirubin Negative, Urine Urobilinogen 0.2, Ur Leukocyte Esterase 1+ A, Urine RBC 3-5, Urine WBC 3-5, Ur Squamous Epith Cells 3-5, Amorphous Sediment 1+, Urine Bacteria 1+ 08/04/21 06:02: Urine Opiates Screen Negative, Urine Methadone Screen Negative, Ur Barbituates Screen Negative, Ur Phencyclidine Scrn Negative, Ur Amphetamines Screen Negative, U Benzodiazepines Scrn Negative, Urine Cocaine Screen Negative, U Marijuana (THC) Screen Negative 08/04/21 06:02: WBC 7.6, RBC 4.12 L, Hgb 11.0 L, Hct 35.6 L, MCV 86.3, MCH 26.8 L, MCHC 31.0 L, RDW 19.5 H, Plt Count 228, MPV 9.9, Neut % (Auto) 74.4, Lymph % (Auto) 18.7, [place] % (Auto) 5.0, Eos % (Auto) 1.2, Baso % (Auto) 0.6, Neut # (Auto) 5.7, Lymph # (Auto) 1.4, [place] # (Auto) 0.4, Eos # (Auto) 0.1, Baso # (Auto) 0.0 08/04/21 06:02: SARS-CoV-2 (PCR) Not detected, Influenza A Untype (PCR) Not detected, Influenza Type B (PCR) Not detected 08/04/21 06:02: Blood Type B Positive, Antibody Screen Negative I & O for Last 24 hours: Intake & Output 08/01/21 08/02/21 08/03/21 08/04/21 11:59 11:59 11:59 11:59 Weight 196 lb - Constitutional no acute distress - *Routine HEENT Exam Head: Present: normocephalic Eye: Absent: conjunctival icterus ENT: Present: mucous membranes moist - *Routine Neck Exam P
--- NOTE | 2021-08-04 09:43 | P.PN_ITS ---
[facility] Anesthesia Checklist - Patient Identification Patient Identification: Arm Band, Verbal (Name & ) - Structural Data Admitted From: Home Planned Operative Procedure/s: NILAM Consent for Planned Operative Procedure(s) Verified: Yes Verified Documents: Surgical Consent - NPO Status Verified Time NPO: 04:30 - Chart Verification Results Verified: CBC - Airway Assessment C-Spine Mobility Assessed: Yes TMJ Mobility Assessed: Yes Dentition: Good Dentition - Neurological Assessment Level of Consciousness: Awake, Alert, Appropriate - Anesthesia Plan Anesthesia Risk discussed: Yes ASA Class: II Anesthesia Type: Epidural [facility] History I have reviewed the patient's past medical history: Yes Medical History: Reports:: Depression, Migraine Denies:: Anxiety, Diabetes Mellitus Type 1, Hyperlipidemia, Hypertension, Seizures *Have you ever received a pneumonia vaccine?: No *Have you received a flu vaccine this season?: No Other Medical History: Reports: Anemia Anesthesia experience/problems:: no issues Other Surgeries: No: Amputation: No Fractures: No - *Social History Smoking Status: Never smoker Alcohol Intake: never Substance Use Type: denies use *Occupational Status:: employed *Travel in the last 8 weeks: None - Psychiatric History Pschychiatric History:: Reports:: Depression Denies:: Anxiety Family Hx:: No significant family history Para: 7 LMP comments:
[2021-08-04 11:35] VITALS: BP 107/73; PULSE 73; RESP 18; TEMP 36.6
--- NOTE | 2021-08-04 12:22 | HMH.LABNOT ---
Labor Note - Subjective: Date: 08/04/21 Time: 12:22 irregular contractions Comment:: comfortable with epidural - Objective: NST:: Reactive Contractions:: every 4-5 minutes Cervical Dilation:: 3 Effacement:: 50% Station: -2 Membranes: artificially ruptured Comment:: AROM with meconium stained fluid IUPC and FSE placed without difficulty or complication - Fetus: monitoring type:: Internal - Assessment: Patient Problems: All Active Problems Meconium in amniotic fluid (Acute) 39 weeks gestation of (Acute) Grand multiparity (Acute) Depression affecting (Acute) Choroid plexus cyst of fetus on ultrasound (Acute) Subchorionic hemorrhage in first trimester (Acute) AMA (advanced maternal age) multigravida 35+ (Acute) Anemia affecting (Acute) (Acute) Vulvar varicose veins (Acute) History of fourth degree perineal laceration (Acute) - Plan: Comment:: Continue pitocin augmentation Continuous monitoring
[2021-08-04 16:25] VITALS: BP 126/64; PULSE 76; RESP 18; TEMP 36.7; O2SAT 95
[2021-08-04 20:00] VITALS: BP 124/66; PULSE 80; RESP 18; TEMP 36.7; O2SAT 100
--- NOTE | 2021-08-04 20:14 | HMH.DN ---
- Delivery Note Delivery Date:: 08/04/21 Delivery Time:: 19:37 Anesthesia Type: Epidural Was labor medically induced?: Yes Induction method: per pitocin protocol Gestational age (weeks): 39 delivered prior to 39 weeks?: No Gender: Female at 1 minute: 8 at 5 minutes: 9 Delivery Procedure:: Spontaneous vaginal delivery of liveborn female infant over intact perineum. Delivery uncomplicated Nuchal cord x 2 reduced on perineum; no shoulder dystocia with delivery taken to warmer immediately after umbilical cord clamped/cut, with standard nursing assessment performed Peds in attendance at delivery, with cpap administration for respiratory retractions Infant Apgars: 8 & 9 Placenta spontaneously expressed and examined; noted to be complete/intact. Vulva, vagina, and cervix inspected; 1st degree perineal laceration repaired with 2-0 vicryl, anterior vaginal mucosa laceration repaired with 3-0 vicryl EBL: 300 cc All sponge/needle/instrument counts correct at conclusion of procedure Laceration:: vaginal Placental Delivery Description: Spontaneous
[2021-08-05 04:34] VITALS: BP 125/63; PULSE 74; RESP 16; TEMP 36.7; O2SAT 97
[2021-08-05 07:17] LABS: Hematocrit 33.6 % (37.0-47.0); Hemoglobin 10.4 g/dL (12.2-16.2)
[2021-08-05 10:27] LABS: POC Glucose,Bedside 60 (70-110)
--- NOTE | 2021-08-05 12:50 | HMH.ACPN2 ---
Internal Medicine - PN: Subj *Date: 08/05/21 *Time: 12:50 Interval history: PPD#1 labs appropriate tolerating regular diet, ambulating and voiding without difficulty lochia appropriate infant is doing well in room with mom, after requiring oxyhoood for few hours after delivery Exam Vital signs and Labs for Last 24 Hours: Temp Pulse Resp BP Pulse Ox 98.0 F 74 16 125/63 97 08/05/21 04:34 08/05/21 04:34 08/05/21 04:34 08/05/21 04:34 08/05/21 04:34 Laboratory Results - last 24 hr 08/04/21 06:02: Blood Type B Positive, Antibody Screen Negative, Crossmatch (AHG) See Detail 08/05/21 04:47: POC Glucose 60 L 08/05/21 06:30: Hgb 10.4 L, Hct 33.6 L I & O for Last 24 hours: Intake & Output 08/03/21 08/04/21 08/05/21 08/06/21 11:59 11:59 11:59 11:59 Weight 196 lb Microbiology Reports for the Last 24 Hours: Microbiology 08/04/21 06:02 Urine,Clean Catch Urine Culture - Preliminary NO GROWTH AFTER 24 HOURS Narrative: CONSTITUTIONAL: no acute distress HEENT: mucous membranes moist PULMONARY: breathing unlabored without audible wheezes CV: no tachycardia or visible JVD; normal LE peripheral pulses ABD: soft, NT/ND, no guarding : fundus firm at/below umbilicus SKIN: no visible rash or lesions EXT: 1+ edema LEs NEURO: alert/oriented, no altered mental status PSYCH: appropriate mood and demeanor Assessment and Plan (1) 39 weeks gestation of Status: Acute Category: Medical Code(s): Z3A.39 - 39 weeks gestation of (2) Grand multiparity Status: Acute Category: Medical Code(s): Z64.1 - Problems related to multiparity (3) AMA (advanced maternal age) multigravida 35+ Status: Acute Category: Medical Code(s): O09.529 - Supervision of elderly multigravida, unspecified trimester (4) Depression affecting Status: Acute Category: Medical Code(s): O99.340 - Other mental disorders complicating , unspecified trimester; F32.9 - Major depressive disorder, single episode, unspecified (5) Anemia affecting Status: Acute Category: Medical Code(s): O99.019 - Anemia complicating , unspecified trimester (6) History of fourth degree perineal laceration Problem details: G1 Status: Acute Category: Medical Code(s): Z87.59 - Personal history of other complications of , childbirth and the puerperium (7) Meconium in amniotic fluid Status: Acute Category: Medical Code(s): P96.83 - Meconium staining (8) Vaginal delivery Status: Acute Category: Medical Code(s): O80 - Encounter for full-term uncomplicated delivery - Assessment and plan all Dx Assessment and Plan for all problems:: routine care PNV with FeSO4 anticipate discharge home in am
[2021-08-05 20:36] VITALS: BP 139/73; PULSE 82; RESP 18; TEMP 36.6; O2SAT 97
[2021-08-06 04:15] VITALS: BP 123/75; PULSE 63; RESP 18; TEMP 37; O2SAT 98
--- NOTE | 2021-08-06 12:49 | HMH.DCSUM ---
General - General Admission date:: 08/04/21 Discharge date: 08/06/21 HPI HPI: 36 yo @ 39 10/16 admitted for elective induction of labor complicated by grandmultiparity, advanced maternal age, depression and anemia Successful medical management of depression with zoloft; taking ferrous sulfate for anemia Choroid plexus cyst noted on 20 week anatomy ultrasound but resolved on subsequent 34 week ultrasound Obstetrical history significant for previous 4th degree laceration Hospital Course Hospital Course: course uneventful asymptomatic with [id number] anemia tolerating regular diet ambulating and voiding without difficulty moderate pain with repair and vulvar/vaginal edema discharged home on PPD #2 in stable condition she will continue [id number] Rhogam Administration: Not Indicated Objective Vital signs: Temp Pulse Resp BP Pulse Ox 98.6 F 63 18 123/75 98 08/06/21 04:15 08/06/21 04:15 08/06/21 04:15 08/06/21 04:15 08/06/21 04:15 Narrative: CONSTITUTIONAL: no acute distress HEENT: mucous membranes moist PULMONARY: breathing unlabored without audible wheezes CV: no tachycardia or visible JVD; normal LE peripheral pulses ABD: soft, NT/ND, no guarding : fundus firm below umbilicus SKIN: no visible rash or lesions EXT: 1+ edema LEs NEURO: alert/oriented, no altered mental status PSYCH: appropriate mood and demeanor DS: Diagnosis - Discharge Diagnosis (1) 39 weeks gestation of Status: Acute (2) Grand multiparity Status: Acute (3) AMA (advanced maternal age) multigravida 35+ Status: Acute (4) Depression affecting Status: Acute (5) Anemia affecting Status: Acute (6) History of fourth degree perineal laceration Status: Acute Problem details: G1 (7) Meconium in amniotic fluid Status: Acute (8) Vaginal delivery Status: Acute Discharge Plan - Patient Discharge Instructions ACTIVITY: Continue current activity DIET: regular diet Additional Instructions: Nothing in the vagina for 6 weeks No tub baths for 6 weeks Drink plenty of fluids No strenuous activity Patient Instructions: Depression, Hemorrhage, DI for Labor and Delivery, Vaginal , DI for Pre-eclampsia, [facility] Post Discharge Instructions, Preventing the Spread of Coronavirus Discharge Instructions - Follow up Plan Follow up with: Holm,Krista, MD [Primary Care Provider] - Disposition: Home, Self-Care Condition at discharge:: Stable Home Medications: Home Medications Medication Instructions Recorded Confirmed Type docusate sodium 100 mg capsule 100 mg PO DAILY 07/20/21 08/04/21 History omeprazole 20 mg capsule,delayed 20 mg PO DAILY 07/20/21 08/04/21 History release Ferrous Sulfate 325 mg PO DAILY 08/04/21 08/04/21 History Ondansetron [Zofran 4mg ODT] 4 mg PO Q4HP PRN 08/04/21 08/04/21 History Vit Calc,Iron,Folic [Kpn] 1 tab PO DAILY 08/04/21 08/04/21 History Sertraline HCl [Zoloft] 150 mg PO DAILY 08/04/21 08/04/21 History Ibuprofen [Motrin 400mg 800 mg PO Q6HP PRN #40 tab 08/06/21 Rx tablet] Oxycodone HCl [OxyIR 5mg tablet] 7.5 mg PO Q4HP PRN #30 tablet 08/06/21 Rx Prescriptions/Medication Reconciliation: New Docusate Sodium [Docusate Sodium 100mg Cap] 100 mg PO DAILY capsule Oxycodone HCl [OxyIR 5mg tablet] 7.5 mg PO Q4HP PRN #30 tablet PRN Reason: Moderate Pain Ibuprofen [Motrin 400mg tablet] 800 mg PO Q6HP PRN #40 tab PRN Reason: Mild To Moderate Pain Acetaminophen [Acetaminophen 325mg tab] 650 mg PO Q4HP PRN tablet PRN Reason: Mild Pain Continued omeprazole 20 mg capsule,delayed release 20 mg PO DAILY docusate sodium 100 mg capsule 100 mg PO DAILY Sertraline HCl [Zoloft] 150 mg PO DAILY Vit Calc,Iron,Folic [Kpn] 1 tab PO DAILY Ondansetron [Zofran 4mg ODT
== END 2021-08-06 16:25 | disposition home or self-care (01) | DRG 807 ==
PROVIDERS: Admitting Provider Obstetrics & Gynecology; PCP Obstetrics & Gynecology; Visit Provider Obstetrics & Gynecology
DX: O69.81X0 Labor and delivery complicated by cord around neck, without compression, not applicable or unspecified (principal); Z37.0 Single live birth; O70.1 Second degree perineal laceration during delivery; Z3A.39 39 weeks gestation of pregnancy; O99.344 Other mental disorders complicating childbirth; F32.A Depression, unspecified; O99.02 Anemia complicating childbirth; Z87.59 Personal history of other complications of pregnancy, childbirth and the puerperium
CPT/HCPCS: 59409; 36415; 59025; 80305; 81001; 82962; 85014; 85018; 85025; 86850; 87086; 94761; C1758; C9803; G0283; U0003; U0005

== ENCOUNTER → 2021-10-22 09:32 | Outpatient (CLI) | payer OTHER, SELFPAY ==
--- NOTE | 2021-10-22 09:32 | US_ITS ---
FINAL REPORT CLINICAL HISTORY: DUB-- post bleeding x 12 wks FINDINGS: Transvaginal sonographic images of the pelvis were obtained. The uterus measures 7.2 x 3.6 x 7 cm. The endometrium measures 6 mm, which is within normal limits. No uterine mass is identified. The right ovary measures 2.7 cm in length and left ovary measures 4.2 cm in length. Normal blood flow seen to the ovaries. There is a 3 cm cyst in the left ovary. There is no evidence of free fluid. IMPRESSION: 3 cm left ovarian cyst. Reviewed, Interpreted and Dictated by Drew Garcia III, MD Transcribed by Baylee Moran Authenticated by Drew Garcia III, MD on 10/22/2021 01:12:23 PM [facility]
== END ==
PROVIDERS: PCP Obstetrics & Gynecology; Visit Provider Obstetrics & Gynecology
DX: N93.8 Other specified abnormal uterine and vaginal bleeding (principal)
CPT/HCPCS: 76830

== ENCOUNTER 2021-12-19 16:08 | Emergency (ER) | payer OTHER, SELFPAY ==
[2021-12-19 16:08] VITALS: BP 126/75; PULSE 84; RESP 16; TEMP 36.8; O2SAT 98; BMI 26.6
--- NOTE | 2021-12-19 16:33 | HMH.EDUTC ---
[facility] Disposition Clinical Impression: Strep throat Disposition: Home, Self-Care Condition on Discharge: Good Instructions: Strep Throat, DI for Strep Throat, Amoxicillin Additional Instructions: *Monitor Temp, Over the counter Motrin or Tylenol as directed/as needed Tylenol every 4 hours and Motrin every 6 hours (as long as your family doctor has told you that you can take it) for fever or pain. and straight to ER if unable to lower temp less than 101.0 after medication given *Warm salt water gargles may help to soothe the throat *Throat Lozenges *Warm fluids like tea with honey may help to soothe the throat *Sleep elevated *Humidifier/Vaporizer *If you did not take Penicillin shot or was unable to, start taking antibiotic immediately and make sure that you take it for the FULL length of time although you should start to feel better in 24-48 hours *change toothbrush and toothpaste 24-48 hours after starting to take antibiotics so you do not reinfect yourself Monitor Temp. Tylenol and/or Ibuprofen as needed. ER if fever is no less than 101 despite alternating Tylenol and Ibuprofen * Encourage fluids, water, Gatorade, powerade, pedialyte if /toddler/or child *Cold fluids, popsicles and ice cream may feel good on his throat Follow up IMMEDIATELY for new or worsening symptoms or no Noticeable improvement over the next 48-72 hours. 911 for difficulty breathing or swallowing Prescriptions: Amoxicillin [Amoxicillin 500mg Cap] 500 mg PO BID 10 Days #20 cap Transmission Status: Pending to [id number] Referrals: Provider,Referral, [Primary Care Provider] - As needed Time of Disposition: 16:43 Medical Decision Making - Herman Inquiry Pt receiving controlled substance: No Herman was queried for this patient: No Vital Signs: 12/19/21 16:08 Temperature 98.2 F Temperature Source Oral Pulse Rate [Right] 84 Respiratory Rate 16 Blood Pressure [Right Arm] 126/75 Blood Pressure Mean [Right Arm] 92 Blood Pressure Source [Right Arm] Automatic Cuff Blood Pressure Position [Right Arm] Sitting 02 Sat by Pulse Oximetry 98 Oxygen Delivery Method Room Air - Lab Data Lab results reviewed: Yes: I reviewed the patient's lab results. Lab Results 12/19/21 16:22: Strep Scn Rapid Clinic Positive A [facility] HPI - General Stated complaint: sore throat Time Seen by Provider: 12/19/21 16:33 Mode of Arrival: Ambulatory Source of Information: Patient Limitations: No Limitations Description of Symptoms (Recalled from Triage Doc. by RN): sore throat that started last night HEENT Symptoms (Recalled from RN notes): Yes (sore throat) Resp Symptoms (Recalled from RN notes): No Skin Symptoms (Recalled from RN notes): No MS Symptoms (Recalled from RN notes): No Functional Status (Recalled from RN notes): na - History of Present Illness Provider Complaint: Patient states that she started last night and has continued to get worse States that it has continued to get worse States that today she could barely swallow her sausage due to pain State that she was worried that she may have strep throat so she came in to get checked out - Related Data Previous Rx's Medication Instructions Recorded Ibuprofen [Motrin 400mg 800 mg PO Q6HP PRN #40 tab 08/06/21 tablet] cephalexin 500 mg tablet 500 mg PO TID 10 Days #30 tab 10/20/21 sertraline 100 mg tablet 150 mg PO DAILY #135 tab 10/27/21 Amoxicillin [Amoxicillin 500mg 500 mg PO BID 10 Days #20 cap 12/19/21 Cap] Allergies Allergy/AdvReac Type Severity Reaction Status Date / Time hydrocodone Allergy Mild Verified 09/21/21 09:56 paroxetine Allergy Mild Verified 09/21/21 09:56 - Worker's Comp Is this a Worker's Comp case?: No [facility] History - Hepatitis A Screen Drug use history?: No High risk sexual behaviors?: No History of sexually transmitted infection?: No Currently employed?: No Childcare worker?: No Do you have indoor plumbing?: Yes Do you
[2021-12-19 16:34] LABS: UTC Strep Screen (Rapid) Positive (Negative)
[2021-12-19 16:47] VITALS: BP 126/75; PULSE 84; RESP 16; TEMP 36.8; O2SAT 98
== END 2021-12-19 16:49 | disposition home or self-care (01) ==
PROVIDERS: Emergency Provider Nurse Practitioner
DX: J02.0 Streptococcal pharyngitis (principal); B95.0 Streptococcus, group A, as the cause of diseases classified elsewhere; D64.9 Anemia, unspecified; G43.909 Migraine, unspecified, not intractable, without status migrainosus; F32.A Depression, unspecified; Z79.1 Long term (current) use of non-steroidal anti-inflammatories (NSAID); Z79.899 Other long term (current) drug therapy; Z88.5 Allergy status to narcotic agent; Z88.6 Allergy status to analgesic agent
CPT/HCPCS: 87880; 99213; G0463

== ENCOUNTER → 2022-12-08 13:16 | Outpatient (CLI) | payer BC, SELFPAY ==
--- NOTE | 2022-12-08 13:16 | US_ITS ---
FINAL REPORT TECHNIQUE: Sonographic images of the pelvis were obtained transvaginally. CLINICAL HISTORY: dub. Heavy bleeding COMPARISON: 10/22/2021 FINDINGS: The uterus is anteverted and anteflexed. It measures 8.1 x 6.0 x 5.3 cm. The endometrial cavity is distended with fluid. Also within the endometrial cavity is echogenic material which could represent blood product. Less likely would be an unusual polyp. The endometrial stripe measures 8 mm. The myometrium is homogeneous. The cervix is closed. The right ovary measures 2.4 x 1.8 x 1.4 cm. It is normal in appearance. The left ovary measures 2.9 x 2.5 x 1.6 cm. It is normal in appearance. Color imaging to the ovaries is within normal limits. There is no free fluid. IMPRESSION: 1. Distension of the endometrial cavity with fluid and debris which may be blood product, an endometrial polyp is not excluded. Recommend correlation with beta AH CG 2 exclude possibility of . Consider follow-up exam in 6 weeks. Reviewed, Interpreted and Dictated by Monica Oneill MD Transcribed by Baylee Moran Authenticated and [facility]
[2022-12-08 14:21] LABS: Basophils # 0.1 K/mm3 (0-0.2); Basophils % 1.6 % (0.1-2.0); Eosinophils # 0.2 K/mm3 (0.0-0.4); Eosinophils % 3.9 % (0.1-12.0); Hematocrit 43.1 % (37.0-47.0); Hemoglobin 13.4 g/dL (12.2-16.2); Lymphocytes # 1.3 K/mm3 (0.7-4.5); Lymphocytes % 28.3 % (10-50); Mean Corpuscular Hemoglobin 29.9 pg (27.0-31.2); Mean Corpuscular Volume 96.3 fl (81-99); Monocytes # 0.3 K/mm3 (0.1-1.0); Monocytes % 5.8 % (1.7-9.3); Neutrophils # 2.9 K/mm3 (1.8-7.8); Neutrophils % 60.4 % (37.0-80.0); Platelet Count 282 K/mm3 (142-424); Red Blood Count 4.48 M/mm3 (4.20-5.40); Red Cell Distribution Width 13.9 % (11.5-17.5); White Blood Count 4.8 K/mm3 (4.8-10.8)
[2022-12-10 11:31] LABS: FSH 0.4 mIU/mL (.)
== END ==
PROVIDERS: PCP Obstetrics & Gynecology; Visit Provider Obstetrics & Gynecology
DX: N93.8 Other specified abnormal uterine and vaginal bleeding (principal); N93.9 Abnormal uterine and vaginal bleeding, unspecified; R09.89 Other specified symptoms and signs involving the circulatory and respiratory systems
CPT/HCPCS: 36415; 76830; 83001; 84443; 85025

== ENCOUNTER → 2022-12-13 11:10 | Outpatient (CLI) | payer BC, SELFPAY ==
[2022-12-10 14:50] LABS: HCG,Quantitative 3667 mIU/ml (0-5.42)
[2022-12-12 11:04] LABS: Progesterone 4.3 ng/mL (.)
[2022-12-13 11:59] LABS: HCG,Quantitative 5248 mIU/ml (0-5.42)
== END ==
PROVIDERS: Visit Provider Obstetrics & Gynecology
DX: O20.0 Threatened abortion (principal); Z32.01 Encounter for pregnancy test, result positive
CPT/HCPCS: 36415; 84144; 84702

== ENCOUNTER → 2022-12-27 10:54 | Outpatient (CLI) | payer BC, SELFPAY ==
--- NOTE | 2022-12-27 10:55 | US_ITS ---
FINAL REPORT CLINICAL HISTORY: for dates FINDINGS: PELVIC ULTRASOUND There is hypoechoic fluid in debris throughout the endometrium. The endometrium is thickened. There is a rounded anechoic structure that may represent a gestational sac. No pole or yolk sac is identified. Findings are concerning for hemorrhage associated with early gestation. The right ovary measures up to 3.7 cm. The left ovary measures up to 2.9 cm. Blood flow is identified to both ovaries. No free fluid is noted. IMPRESSION: Questionable gestational sac without pole or yolk sac concerning for hemorrhage associated with early gestation. Recommend follow-up beta HCG and ultrasound. Reviewed, Interpreted and Dictated by Mir Biggs MD Transcribed by True Agrawal Authenticated and [facility]
[2022-12-27 12:40] LABS: HCG,Quantitative 12292 mIU/ml (0-5.42)
== END ==
PROVIDERS: Visit Provider Obstetrics & Gynecology
DX: N96 Recurrent pregnancy loss; O20.0 Threatened abortion
CPT/HCPCS: 36415; 76801; 84702

== ENCOUNTER → 2022-12-30 12:05 | Outpatient (CLI) | payer BC, SELFPAY ==
[2022-12-30 12:48] LABS: HCG,Quantitative 8518 mIU/ml (0-5.42)
== END ==
PROVIDERS: Visit Provider Obstetrics & Gynecology
DX: N96 Recurrent pregnancy loss (principal)
CPT/HCPCS: 36415; 84702

== ENCOUNTER 2023-01-05 16:29 | Inpatient (IN) | payer BC, SELFPAY ==
[2023-01-05] VITALS (28 sets, daily range): BP systolic 93–137; BP diastolic 50–78; PULSE 59–86; RESP 15–18; TEMP 36.8; O2SAT 97–100; BMI 28.8
[2023-01-05 17:20] LABS: Microscopic, Urine URINE MICROSCOPIC (MICROSCOPIC)
[2023-01-05 17:26] LABS: Basophils # 0.1 K/mm3 (0-0.2); Basophils % 1.2 % (0.1-2.0); Eosinophils # 0.2 K/mm3 (0.0-0.4); Eosinophils % 2.6 % (0.1-12.0); Hematocrit 41.2 % (37.0-47.0); Hemoglobin 12.9 g/dL (12.2-16.2); Lymphocytes # 1.4 K/mm3 (0.7-4.5); Lymphocytes % 21.8 % (10-50); Mean Corpuscular HGB Conc 31.3 g/dL (31.8-35.4); Mean Corpuscular Hemoglobin 29.5 pg (27.0-31.2); Mean Corpuscular Volume 94.1 fl (81-99); Mean Platelet Volume 8.6 fl (7.4-10.4); Monocytes # 0.3 K/mm3 (0.1-1.0); Monocytes % 4.6 % (1.7-9.3); Neutrophils # 4.6 K/mm3 (1.8-7.8); Neutrophils % 69.8 % (37.0-80.0); Platelet Count 287 K/mm3 (142-424); Red Blood Count 4.38 M/mm3 (4.20-5.40); Red Cell Distribution Width 13.7 % (11.5-17.5); White Blood Count 6.6 K/mm3 (4.8-10.8)
[2023-01-05 17:29] LABS: Alanine Aminotransferase 24 U/L (12-78); Albumin Level 4.4 g/dl (3.5-5.0); Albumin/Globulin Ratio 1.9 (1.1-1.8); Alkaline Phosphatase 63 U/L (38-126); Anion Gap 11.1 mEq/L (5-15); Aspartate Amino Transferase 30 U/L (14-36); Bilirubin,Total 0.4 mg/dl (0.2-1.3); Blood Urea Nitrogen 15 mg/dl (7-17); Calcium 8.6 mg/dl (8.4-10.2); Carbon Dioxide 28 mmol/L (22.0-30.0); Chloride 101 mmol/L (98-107); Creatinine Clearance Estimated 132 mL/min (50-200); Estimated Glomerular Filt Rate 80 ml/min (>60); GFR (African American) 97 ML/MIN (>60); Globulin 2.3 g/dL (1.3-3.2); Glucose 97 mg/dl (74-100); Potassium 4.1 mmoL/L (3.5-5.1); Sodium 136 mmol/L (136-145); Total Protein,Serum 6.7 g/dl (6.3-8.2)
[2023-01-05 17:31] LABS: HCG Qualitative, Serum Positive (Negative)
[2023-01-05 17:31] LABS: Urine Pregnancy, HCG Qual. Positive (Negative)
[2023-01-05 17:45] LABS: Appearance,Urine TURBID (Clear); Bilirubin,Urine Negative (Negative); Blood, Urine 3+ (Negative); Color,Urine RED (Yellow); Glucose,Urine (UA) TRACE (Negative); Ketones,Urine Negative (Negative); Leukocyte Esterase,Urine Negative (Negative); Nitrate,Urine Negative (Negative); PH,Urine 7.5 (5.0-8.5); Protein,Urine 3+ (Negative); Specific Gravity, Urine 1.025 (1.005-1.030); Urobilinogen,Urine 0.2 EU/dl (0.2)
[2023-01-05 17:46] LABS: RBC,Urine TNTC #/hpf (0-3)
--- NOTE | 2023-01-05 18:29 | HMH.EDGENADL ---
Discharge Plan Disposition Patient Disposition: Home, Self-Care Condition: Good Prescriptions Prescriptions: New misoprostol [Cytotec] 200 mcg tablet 600 mcg sublingual Q6H Qty: 24 0RF oxycodone-acetaminophen [Percocet] 5-325 mg tablet 1 tab PO Q8H PRN (Reason: pain) Qty: 7 0RF ondansetron 4 mg tablet,disintegrating 4 mg PO Q8H PRN (Reason: nausea and vomiting) 3 Days Qty: 10 0RF No Action sertraline [Zoloft] 100 mg tablet 150 mg PO DAILY Qty: 135 3RF progesterone micronized [Prometrium] 200 mg capsule 200 mg vaginal HS Qty: 30 3RF Referrals Follow up/Referrals: Provider,Referral, MD [Primary Care Provider] - See instructions Activity Restrictions/Add. Instructions Additional Instructions/Restrictions: Call Dr. Holm in the AM for follow-up. Clinical Impressions Clinical Impression: Spontaneous Instructions Patient Instructions: DI for Acute Abdominal Pain Discharge ED Provider: Peter Carballo General Adult HPI General Chief complaint: Abdominal Pain Stated complaint: Possible Misc[place]age Time Seen by Provider: 01/05/23 17:42 Mode of Arrival: Ambulatory Source of Information: Patient Limitations: No Limitations Description of Symptoms (Recalled from ER Triage Doc. by RN): pt come sin for possible miscarriage. pt sees dr holm for ob. pt was seen last week and hcg levels were dropping. pt began to have bleeding on tuesday, pt reports today that clots have gotten larger in size. pt reports abdominal pain and cramping. History of Present Illness HPI narrative: 37yo F G14 presents to the ER secondary to uterine cramping and bleeding. Was seen by Dr. Holm last Tuesday and informed her beta-hCG levels are declining. Patient reports she began bleeding Tuesday but has had heavy bleeding for the last 4 hours. Reports large clots. Denies shortness of breath or lightheadedness. Has never required blood transfusion. Related Data Previous Rx's Medication Instructions Recorded sertraline 100 mg tablet (Zoloft) 150 mg PO DAILY #135 tabs 09/10/22 progesterone micronized 200 mg 200 mg vaginal HS #30 caps 12/10/22 capsule (Prometrium) misoprostol 200 mcg tablet 600 mcg sublingual Q6H #24 tabs 01/05/23 (Cytotec) ondansetron 4 mg disintegrating 4 mg PO Q8H PRN nausea and 01/05/23 tablet vomiting 3 days #10 tabs oxycodone-acetaminophen 5 mg-325 1 tab PO Q8H PRN pain #7 tabs 01/05/23 mg tablet (Percocet) Allergies Allergy/AdvReac Type Severity Reaction Status Date / Time hydrocodone Allergy Mild Verified 12/07/22 13:54 paroxetine Allergy Mild Verified 12/07/22 13:54 PFSH PFSH Disclaimer: The information contained in this section may have been updated after the patient was seen, as this information can be updated by other users. Medical History Recurrent loss Social History Smoking Status: Never smoker alcohol intake: never substance use type: denies use current occupational status: employed Travel in the last 8 weeks: None ROS Obtained: Yes Systems reviewed as appropriate & no additional complaints except as documented Physical Exam General General appearance: alert and in no apparent distress Comment: Appears uncomfortable Head Head exam: atraumatic Eye Eye exam: Present normal appearance Neck Neck exam: Present trachea midline Chest Chest inspection: Present symmetric chest wall rise Respiratory Respiratory exam: Present normal lung sounds bilaterally Cardiovascular Cardiovascular exam: Present regular rate Abdominal Exam Abdominal exam: Present soft; Absent distention Extremities Exam Extremities exam: Absent edema Neurological Exam Neurological exam: Present alert, oriented X3 and CN II-XII intact Psychiatric Psychiatric exam: Present normal affect Skin Skin exam: Present warm and dry Medical Decision Making Herman Inqu
--- NOTE | 2023-01-05 19:21 | PC.NURSE ---
pg ob doctor identification officer to speak to er md about admission on pt
--- NOTE | 2023-01-05 19:23 | PC.NURSE ---
er speaking to ob doctor building construction foreman
--- NOTE | 2023-01-05 19:25 | PC.NURSE ---
called house for bed assignment in ob
--- NOTE | 2023-01-05 19:30 | PC.NURSE ---
covid/flu to lab
--- NOTE | 2023-01-05 19:33 | PC.NURSE ---
called to patient's room by nurse Francisco. Noted patient to be diaphoretic, cyanotic and unresponsive. Patient with pulse and respirations present though pulse is thready. Approached patient with ammonia inhalant with immediate response of awakening. Pupils equal, dilated to 4mm. Patient responds to name only. FSBS: 116 mg/dl. Initial bp difficult to obtain. Repeat following new IV insertion. Patient became a&ox4 after approx 4 minutes. Comfort measures provided. Assisted patient from wc to stretcher. Placed on monitor.Will continue to monitor. MD at bedside and states we will now admit patient to ob floor for overnight monitoring.
[2023-01-05 19:43] LABS: Coronavirus 19, PCR Not Detected (NotDetected); Influenza A, PCR Not Detected (NotDetected); Influenza B, PCR Not Detected (NotDetected)
--- NOTE | 2023-01-05 20:30 | PC.NURSE ---
Patient arrived to unit at this time via wheelchair from ER.
[2023-01-05 20:44] LABS: Anion Gap 10.3 mEq/L (5-15); Blood Urea Nitrogen 21 mg/dl (7-17); Calcium 7.5 mg/dl (8.4-10.2); Carbon Dioxide 21 mmol/L (22.0-30.0); Chloride 105 mmol/L (98-107); Creatinine Clearance Estimated 176 mL/min (50-200); Estimated Glomerular Filt Rate 111 ml/min (>60); GFR (African American) 135 ML/MIN (>60); Glucose 91 mg/dl (74-100); Potassium 3.3 mmoL/L (3.5-5.1); Sodium 133 mmol/L (136-145)
[2023-01-05 21:04] LABS: HCG,Quantitative 2326 mIU/ml (0-5.42)
--- NOTE | 2023-01-05 21:40 | PC.NURSE ---
Patient had a syncopal episode attempting to get up with staff assistance. Patient never stood up but remained sitting the bed. Patient placed back in bed to lay down with assistance from 2 RN's. Patient was hypotensive momentarily and recovered in a couple of minutes and 500ml bolus of LR. Explained to patient that we will remain in bed until we replenish her volume. Patient verbalized understanding.
[2023-01-05 22:01] LABS: Basophils % 0.6 % (0.1-2.0); Eosinophils # 0.2 K/mm3 (0.0-0.4); Eosinophils % 3.1 % (0.1-12.0); Hematocrit 34.6 % (37.0-47.0); Lymphocytes # 1.9 K/mm3 (0.7-4.5); Lymphocytes % 27.2 % (10-50); Mean Corpuscular HGB Conc 30.9 g/dL (31.8-35.4); Mean Corpuscular Hemoglobin 29.6 pg (27.0-31.2); Mean Corpuscular Volume 95.6 fl (81-99); Mean Platelet Volume 9.1 fl (7.4-10.4); Monocytes # 0.4 K/mm3 (0.1-1.0); Monocytes % 5.1 % (1.7-9.3); Neutrophils # 4.4 K/mm3 (1.8-7.8); Platelet Count 275 K/mm3 (142-424); Red Blood Count 3.62 M/mm3 (4.20-5.40); Red Cell Distribution Width 13.7 % (11.5-17.5); White Blood Count 6.8 K/mm3 (4.8-10.8)
[2023-01-05 22:02] LABS: Hemoglobin 10.7 g/dL (12.2-16.2)
--- NOTE | 2023-01-05 23:25 | PC.NURSE ---
Spoke with Dr. Holm at this time regarding patient status and episode in the bathroom. Orders received for IM methergine 0.2mg NOW STAT. Cytotec given per DEC. Additional dose to be given at 0300 of 0.2mg IM methergine. Vtials are low 100s/50s. Parameters to contact Dr. Holm if systolic drops below 90 and/or if bleeding doesn't seem better by 3am methergine dose, per MD order another STAT H&H and to notify MD if below 8. Explained to MD that clots are tennis ball to baseball sized.
--- NOTE | 2023-01-05 23:46 | PC.NURSE ---
Notified Dr. Holm of running QBL on patient of [facility].
[2023-01-05 23:51] LABS: Hematocrit 32.7 % (37.0-47.0); Hemoglobin 10.1 g/dL (12.2-16.2)
[2023-01-06] VITALS (57 sets, daily range): BP systolic 85–132; BP diastolic 41–76; PULSE 54–98; RESP 10–20; TEMP 36.1–37; O2SAT 94–100; BMI 31.4
--- NOTE | 2023-01-06 00:02 | PC.NURSE ---
Patient has a syncopal episode on the toilet. Patient was diaphoretic, nauseous, and had one episode of emesis. Patients fluids ran wide open. Patient passing tennis size clots. Help called for. Patient came around after about 3 minutes and patient was assisted back to bed with assistance x2.
--- NOTE | 2023-01-06 00:06 | PC.NURSE ---
Patient remains feeling weak and dizzy. BP is stable with MAP greater than 65. Rn remains at bedside.
--- NOTE | 2023-01-06 01:51 | PC.NURSE ---
Patient bleeding is small to moderate. Patient is resting in bed. Patient is easily aroused and alert and oriented. IV patent. BP is stable with systolic 90-100 and diastolic 45-60. Patient remains on room air with oxygen saturation 95-100%. Heart rate is between 60-75 bpm. Respirations are equal and unlabored and 14-17 per minute. BP cycling every 30 minutes.
--- NOTE | 2023-01-06 03:03 | PC.NURSE ---
Patient chux changed at this time. Noticeably less bleeding. No clots noted. Patient respirations are equal and unlabored. Skin is warm, pale and dry. No concerns or needs voiced. Patient resting comfortably in bed.
--- NOTE | 2023-01-06 03:09 | PC.NURSE ---
Spoke with Dr. Holm at this time regarding running QBL of 1032cc. No new orders received. Advised MD that patient's bleeding is considerably less and no clots are noted on the chux. MD advised to hold off on H&H at this time unless patient became clinically symptomatic. Patient is stable.
--- NOTE | 2023-01-06 04:28 | PC.NURSE ---
Patient chux changed at this time. Patient bleeding is small to moderate. No clots noted. Patient remains stable with systolic pressure greater than 90 and MAP greater than 60. Patient heart rate remains 60s-70s. Respirations are equal and unlabored. Patient is warm, dry and pale. IV sites are patent, with IVF infusing in the RAC. Breath sounds are clear throughout. No edema noted. Bowel sounds are active. Patient's pain is controlled with medications per MAR.
[2023-01-06 06:55] LABS: Eosinophils # 0.1 K/mm3 (0.0-0.4)
--- NOTE | 2023-01-06 07:00 | US_ITS ---
FINAL REPORT CLINICAL HISTORY: Miscarriage COMPARISON: 12/09/2019 FINDINGS: Sonographic images of the pelvis were obtained. The uterus is anteverted and anteflexed measuring 9.1 x 5.0 x 5.8 cm. The endometrial stripe measures 7 mm which is normal, improved from prior. This contains some increased echogenicity along the lower aspect of the endometrial cavity. Within the echogenicity of the lower endometrial cavity, there may be blood flow on color images. Retained product from conception is difficult to exclude. There is a small amount of fluid in the cervix. The ovaries are normal. The right ovary measures 3.2 x 1.3 x 1.8 cm. The left ovary measures 1.4 x 1.2 x 1.7 cm. IMPRESSION: Improved appearance of the endometrial cavity. There continues to be abnormal echogenicity in the lower endometrial cavity which may contain blood flow. Retained products of conception cannot be excluded. Reviewed, Interpreted and Dictated by Monica Oneill MD Transcribed by Annetta Kay Authenticated and [facility]
[2023-01-06 07:03] LABS: Chloride 106 mmol/L (98-107)
[2023-01-06 07:04] LABS: Basophils % 0.5 % (0.1-2.0); Eosinophils % 2.2 % (0.1-12.0); Hematocrit 22.8 % (37.0-47.0); Lymphocytes # 0.3 K/mm3 (0.7-4.5); Lymphocytes % 7.1 % (10-50); Mean Corpuscular HGB Conc 34.2 g/dL (31.8-35.4); Mean Corpuscular Hemoglobin 32.6 pg (27.0-31.2); Mean Corpuscular Volume 95.4 fl (81-99); Mean Platelet Volume 9.1 fl (7.4-10.4); Monocytes # 0.3 K/mm3 (0.1-1.0); Monocytes % 5.3 % (1.7-9.3); Neutrophils # 4.1 K/mm3 (1.8-7.8); Neutrophils % 84.9 % (37.0-80.0); Platelet Count 208 K/mm3 (142-424); Potassium 3.6 mmoL/L (3.5-5.1); Red Blood Count 2.39 M/mm3 (4.20-5.40); Red Cell Distribution Width 13.7 % (11.5-17.5); Sodium 132 mmol/L (136-145); White Blood Count 4.8 K/mm3 (4.8-10.8)
[2023-01-06 07:06] LABS: Blood Urea Nitrogen 14 mg/dl (7-17); Creatinine Clearance Estimated 230 mL/min (50-200); Estimated Glomerular Filt Rate 137 ml/min (>60); GFR (African American) 166 ML/MIN (>60); Hemoglobin 7.8 g/dL (12.2-16.2)
[2023-01-06 07:07] LABS: Anion Gap 4.6 mEq/L (5-15); Carbon Dioxide 25 mmol/L (22.0-30.0); Glucose 94 mg/dl (74-100)
--- NOTE | 2023-01-06 07:08 | PC.NURSE ---
Patient assisted x2 to the bedside commode. Patient passed a baseball size clot. Running QBL is 1178 for this RN's shift.
--- NOTE | 2023-01-06 07:19 | PC.NURSE ---
Report given to Gracie Schneider RN
--- NOTE | 2023-01-06 07:44 | PC.NURSE ---
DR PHIPPS ON UNIT- REPORT GIVEN
--- NOTE | 2023-01-06 07:53 | PC.NURSE ---
DR PHIPPS AT BEDSIDE.
--- NOTE | 2023-01-06 09:00 | PC.NURSE ---
SMALL AMOUNT OF BLEEDING NOTED ON CHUX.
--- NOTE | 2023-01-06 09:18 | PC.NURSE ---
PATIENT OFF UNIT WITH 2 RN TO PREOP AT THIS TIME. SENDING BLOOD TRANSFUSION VITALS WITH MONIE ALLISON
--- NOTE | 2023-01-06 09:20 | EXP.HP ---
History of Present Illness *Admission Date: 01/05/23 *Reason for visit:: Hemorrhage secondary to miscarriage *History of present illness: 37 yo presented to the ED on 01/05/23 with excessive vaginal bleeding resulting from miscarriage assessment for viability had been ongoing over the past 2 weeks but the was actually discovered within the context of dyfunctional bleeding with the first 2 menstrual cycles she had after the of her 8th child 16 months ago. She is still breast feeding, and because of the prolonged and dysfunctional bleeding in 09/30 and 11/01, there was no known LMP to use with calculation for gestational age of the . Initial HCG level was 3667 on 12/10 and this increased to 5248 on 12/13. While awaiting dating/viability ultrasound date, she began having moderate bleeding and HCG dropped from 12,292 to 8518 on 12/30. Ultrasound showed intrauterine gestational sac, but neither a yolk sac or pole were ever observed. She preferred expectant management without intervention, and began bleeding heavier on 01/04. On the afternoon of 01/05, she passed several large clots, bigger than a softball, and presented to the emergency department. Initial vitals were stable with Hgb 12.9 and no initial signs of orthostasis. She expressed desire for discharge but was agreeable to po cytotec over the next several days, however she became acutely orthostatic and passed out in the emergency room. She was admitted for observation and medical management. She was counseled for potential need for D&C, but expressed a strong desire to avoid surgical management if at all possible. She was started on PO cytotec q6 hours and given 3 doses of methergine throughout the night. Repeat Hgb at 21:20 was 10.7 and vitals were stable, but she was still having moderate bleeding with the passage of large clots. Pad weights were obtained through the night to calculate a quantitative blood loss, which was approximately 1200cc by morning, excluding the blood loss in the ED and at home. Hgb at 02:30 was 10.1 and bleeding appeared to improve between 2 and 6am, but she passed several large clots at 6:30 and Hgb this morning was 7.8 Ultrasound confirmed that she still had a large amount of blood/products in the lower uterine segment She was transfused 2 units of packed red cells and advised that medical management with uterotonics was not sufficient, given the large volume of blood loss over 14 hours. At this point she agreed to D&C and was added to the morning OR schedule. She is Rh positive. [facility] Disclaimer: The information contained in this section may have been updated after the patient was seen, as this information can be updated by other users. Medical History (Updated 01/06/23 @ 10:59 by Krista Holm MD) Irritable bowel syndrome (IBS) Recurrent loss Family History (Updated 01/05/23 @ 22:05 by Marlin Pepper RN) Family history of ulcerative colitis Family history of hypertension Family history of Alzheimer's disease Family history of diverticulitis of colon Social History (Updated 01/05/23 @ 22:07 by Marlin Pepper RN) Smoking Status: Never smoker alcohol intake: never substance use type: denies use current occupational status: employed Travel in the last 8 weeks: None do you feel safe at home: Yes victim of physical abuse: No victim of emotional abuse: No victim of sexual abuse: No would you like helpful sources: No Review of Systems Review of Systems Review of systems:: pertinent systems reviewed and negative unless documented below Constitutional Constitutional: Denies fever(s) ENT Ears, Nose, Mouth, and Throat: Reports vertigo *Cardiovascular Cardiovascular: Denies chest pain, Denies dyspnea and Reports syncope *Respiratory Respiratory: Denies dyspnea *Gastrointestinal Gastrointestinal: Reports abdominal pain *Genitourinary Genitourinary: Reports abnormal
--- NOTE | 2023-01-06 10:55 | EXP.ANES.CKL ---
[facility] Disclaimer: The information contained in this section may have been updated after the patient was seen, as this information can be updated by other users. Medical History (Updated 01/05/23 @ 22:05 by Marlin Pepper RN) Irritable bowel syndrome (IBS) Recurrent loss Family History (Updated 01/05/23 @ 22:05 by Marlin Pepper RN) Other Family history of Alzheimer's disease Family history of diverticulitis of colon Family history of hypertension Family history of ulcerative colitis Social History (Updated 01/05/23 @ 22:07 by Marlin Pepper RN) Smoking Status: Never smoker alcohol intake: never substance use type: denies use current occupational status: employed Travel in the last 8 weeks: None do you feel safe at home: Yes victim of physical abuse: No victim of emotional abuse: No victim of sexual abuse: No would you like helpful sources: No [facility] Anesthesia Checklist Patient Identification Patient Identification: Arm Band and Family Structural Data Admitted From: Inpatient Planned Operative Procedure/s: D and C Consent for Planned Operative Procedure(s) Verified: Yes Verified Documents: Surgical Consent and History and Physical NPO Status Verified Time NPO: 00:00 Additional verifications Patient : No Anesthesia Reactions: No Hx Blood Transfusions: No Blood Transfusion Reaction: No Cephalosporin Allergy: No Previous Colonoscopy: Yes Airway Assessment C-Spine Mobility Assessed: Yes TMJ Mobility Assessed: Yes Dentition: Good Dentition Neurological Assessment Level of Consciousness: Awake, Alert, Appropriate and Follows Commands Hx Seizures: No Numbness or tingling in extremities: No Anesthesia Plan Anesthesia Risk discussed: Yes ASA Class: III Anesthesia Type: General Preoperative Comments Pre-Operative Comments: Missed AB with copious blood loss. Low H and H, requiring transfusion.
--- NOTE | 2023-01-06 10:58 | P.PNANES_ITS ---
[facility] Anesthesia Record Part I Anesthesia Record I Intake, IV Amount: 600 Estimated blood loss (mL): 200 Urine output (mL): 200 Blood Products used (#): PRBC's Blood Pressure: 132/71 SaO2: 100 Pulse Rate: 94 Respiratory Rate: 18 Temperature: 97.6 F Patient is:: Drowsy and Stable Stable to PACU at:: 10:40
--- NOTE | 2023-01-06 11:11 | SUR.PHASEI ---
1110- pt has complaints of chest heaviness, chio barone gave verbal orders to get a 12 lead ekg. 1115- respiratory at bedside for 12 lead ekg
--- NOTE | 2023-01-06 11:16 | ECG_ITS ---
APPROVED REPORT Exam: Resting ECG HR:79 bpm ECG Measurements Heart Rate 79 AXES NJ 172 P 51 QRSd 104 QRS 73 QT 396 T -8 QTc 430 Conclusion SINUS RHYTHM NONSPECIFIC T-WAVE ABNORMALITY ABNORMAL ECG UNCONFIRMED REPORT Electronically signed by : Kenyon Smith MD 01/07/2023 02:52:06
--- NOTE | 2023-01-06 11:23 | PC.NURSE ---
Report received from ESTEFANY Dubois.
--- NOTE | 2023-01-06 11:42 | SUR.OPER ---
1005- 2nd unit of prbc's began in the OR by chio grimaldo. See TAR for vitals and details.
--- NOTE | 2023-01-06 11:44 | SUR.PHASEI ---
1119- detailed report called to alne moseley in OB 1121- pt left in stable conditon with lane moseley and lane somers in pt room. All VSS, bed in lowest position with side rails up.
--- NOTE | 2023-01-06 12:06 | P.OP_ITS ---
Date of procedure: 01/06/23 Pre-op Diagnosis:: 1. Incomplete spontaneous 2. Acute hemorrhage 3. Anemia secondary to acute blood loss Post-op Diagnosis:: Same Procedure performed:: Dilation and Curettage with Dimple suction Surgeon:: Krista Holm MD SOCIAL SCIENCES PROFESSOR:: Other Anesthesia: GETA Estimated blood loss (mL): 200 Operative findings:: large clots within vagina and lower uterine segment small amount of vesicular-appearing tissue retrieved with curettage Operative note:: The patient was taken to the OR and general anesthesia administered without difficulty. She was prepped and draped in lithotomy position. The second unit of packed red blood cells was given in the OR (first bag given on the floor) and Methergine 0.2mg was given IM for management of hemorrhage. Small retractors were placed in the vagina and 2 large clots were removed with a ring forcep. The cervix was visibly dilated 1-2 cm, with a medium sized clot prolapsing through the ectocervix. As this clot was removed with a polyp forcep, several clots spontaneously evacuated the uterus from behind it. All clot was suctioned for pathology assessment. A single tooth tenaculum was placed on the anterior lip of the cervix. A size # 8curved curette was used to evacuate the contents of the uterus, which appeared to be almost exclusively blood. After this blood and clot had been evacuated from the uterus, sharp curettage was performed to assess the cavity. A small amount of vesicular-appearing tissue was removed and sent for pathology. The suction curette was used again and no clot remained within the uterus, and active bleeding was minimal at this time. All instruments were then removed from her vagina, she was taken out of lithotomy position, awakened from anesthesia and taken to the PACU in stable condition. EBL: 200cc Condition: stable Disposition: PACU Specimens:: Products of conception, clot Complications:: none
[2023-01-06 12:20] LABS: Hematocrit 31.8 % (37.0-47.0)
[2023-01-06 12:21] LABS: Hemoglobin 10.4 g/dL (12.2-16.2)
--- NOTE | 2023-01-06 13:45 | PC.NURSE ---
PATIENT AMBULATED TO BATHROOM WITH NURSE X2. DONE VERY WELL.
--- NOTE | 2023-01-06 16:48 | PC.NURSE ---
REASSESSMENT COMPLETED. BLEEDING HAS IMPROVED THROUGHOUT SHIFT. LUNGS CTA AND BOWEL SOUNDS ACTIVE X4. NO BM MY SHIFT. SMALL AMOUNT OF DARK BROWN BLEEDING NOTED ON PAD. NO CLOTS. TRACE EDEMA NOTED TO BLE. SCUDS IN PLACE. PT REPORTS NAUSEA-MEDS WERE GIVEN FOR THIS. IV INFUSING. PULSES 2+ AND CAP REFILL <3 SECONDS. NO NEEDS VOICED TO NURSE. HAS TOLERATED DIET OKAY. CALL LIGHT WITHIN REACH.
--- NOTE | 2023-01-06 18:39 | PC.NURSE ---
BP CHECKED WITH DIFFERENT SIZE CUFF 111/50- WILL LEAVE LONG SIZE ADULT CUFF FOR THIS PATIENTS USE.
--- NOTE | 2023-01-06 19:00 | PC.NURSE ---
Report received from Gracie Schneider RN
--- NOTE | 2023-01-06 20:00 | PC.NURSE ---
Patient ambulated to and from bathroom with standby assistance from RN. Patient voided successfully and tolerated well.
[2023-01-07] VITALS (17 sets, daily range): BP systolic 89–122; BP diastolic 33–69; PULSE 77–95; RESP 16–83; TEMP 35–37.2; O2SAT 95–99
--- NOTE | 2023-01-07 04:00 | PC.NURSE ---
Reassessment completed at this time. Patient resting in bed, resp even and nonlabored. No s/s of distress noted. IV patent with no redness or edema noted to site, infusing well. patient c/o nausea and pain during shift, PRN medication given. 1+ edema noted to BLE. Scant bleeding noted in aranza pad. Patient ambulated to bathroom and voided during shift with SB assist from RN. No BM during shift. Patient denies any needs at this time. CB in reach.
[2023-01-07 06:32] LABS: Hematocrit 25.4 % (37.0-47.0)
--- NOTE | 2023-01-07 06:58 | P.PNANES_ITS ---
[facility] Anesthesia Record Part II Anesthesia Record Part II Discharge Time: 11:20 Destination: Obstetric PACU nurse assessment reviewed?: Yes Patient Condition:: Good Anesthesia Complications:: None Swallowing reflex intact?: Yes Cyanosis?: No Blood Pressure: 122/69 Pulse Rate: 83 Temperature: 98.3 F Mental Status: Alert & Oriented Pain level:: 0 Nausea and/or vomitting:: None Intake, IV Amount: 0
--- NOTE | 2023-01-07 07:20 | HMH.PHAINT1 ---
Pharmacy Intervention Comments: MEDICATION RECONCILIATION COMPLETED ON PATIENT USING EXTERNAL FILL HISTORY FROM PHARMACY AND LIST FROM ER VISIT. -CRYSTAL GUTIERREZ, JOSED
--- NOTE | 2023-01-07 07:45 | PC.NURSE ---
Pt. reports needing to use bathroom. Pt. sit on side of bed with standby assist. Pt. attempting to stand up. Pt. reports dizziness, Nurse instructed pt. to sit back on edge of bed. Pt. sitting on edge of bed. Nurse offered bedpan. Pt. requested Bedside commode, reports dizziness subsiding, but does not think she can make it into bathroom. Bedside commode provided. Pt. tolerated getting to and from bedside commode well, with no dizziness. Pt. reports needing to concentrate more to void. Nurse educated pt. on possible catheter placement while in OR, and may be from Catheter placement. Pt. v/u. Call castaneda in place. Hand pump washed and dried and provided to patient for breastpumping session, per pt. request. Pt. denies further needs.
--- NOTE | 2023-01-07 13:57 | EXP.DC.SUM ---
General Admission date:: 01/05/23 Discharge date: 01/07/23 HPI HPI HPI: 37 yo presented to the ED on 01/05/23 with excessive vaginal bleeding resulting from miscarriage assessment for viability had been ongoing over the past 2 weeks but the was actually discovered within the context of dyfunctional bleeding with the first 2 menstrual cycles she had after the of her 8th child 16 months ago. She is still breast feeding, and because of the prolonged and dysfunctional bleeding in 09/30 and 11/01, there was no known LMP to use with calculation for gestational age of the . Initial HCG level was 3667 on 12/10 and this increased to 5248 on 12/13. While awaiting dating/viability ultrasound date, she began having moderate bleeding and HCG dropped from 12,292 to 8518 on 12/30. Ultrasound showed intrauterine gestational sac, but neither a yolk sac or pole were ever observed. She preferred expectant management without intervention, and began bleeding heavier on 01/04. On the afternoon of 01/05, she passed several large clots, bigger than a softball, and presented to the emergency department. Initial vitals were stable with Hgb 12.9 and no initial signs of orthostasis. She expressed desire for discharge but was agreeable to po cytotec over the next several days, however she became acutely orthostatic and passed out in the emergency room. She was admitted for observation and medical management. She was counseled for potential need for D&C, but expressed a strong desire to avoid surgical management if at all possible. She was started on PO cytotec q6 hours and given 3 doses of methergine throughout the night. Repeat Hgb at 21:20 was 10.7 and vitals were stable, but she was still having moderate bleeding with the passage of large clots. Pad weights were obtained through the night to calculate a quantitative blood loss, which was approximately 1200cc by morning, excluding the blood loss in the ED and at home. Hgb at 02:30 was 10.1 and bleeding appeared to improve between 2 and 6am, but she passed several large clots at 6:30 and Hgb this morning was 7.8 Ultrasound confirmed that she still had a large amount of blood/products in the lower uterine segment She was transfused 2 units of packed red cells and advised that medical management with uterotonics was not sufficient, given the large volume of blood loss over 14 hours. At this point she agreed to D&C and was added to the morning OR schedule. She is Rh positive. Hospital Course Hospital Course Hospital Course: Initial transfusion of 2 units packed red cells, followed by additional unit of packed red cells D&C performed after failed attempt at conservative medical management of hemorrhage Given a dose of IV iron prior to discharge She will continue po iron after discharge She declines medical/hormonal contraception Exam Data for Last 24 hours Vital signs and Labs for Last 24 Hours: Temp Pulse Resp BP Pulse Ox 98.2 F 81 18 106/54 L 99 01/07/23 13:37 01/07/23 13:37 01/07/23 13:37 01/07/23 13:37 01/07/23 13:37 Laboratory Results - last 24 hr 01/05/23 17:10: Blood Type B Positive, Antibody Screen Negative, Crossmatch (AHG) See Detail 01/07/23 06:10: Hgb 8.0 L D, Hct 25.4 L I & O for Last 24 hours: Intake & Output 01/05/23 01/06/23 01/07/23 01/08/23 11:59 11:59 11:59 11:59 Intake Total 4035 / 4035 0 / 0 250 / 250 Output Total 750 / 750 3450 / 3450 Balance 3285 / 3285 -3450 / -3450 250 / 250 Weight 212 lb 4 oz Constitutional Constitutional: no acute distress *Routine HEENT Exam Head: Present normocephalic Eye: Absent conjunctival icterus or scleral injection ENT: Present mucous membranes moist *Routine Neck Exam Neck: Present supple *Routine Respiratory Exam Respiratory: Present CTA bilaterally *Routine Cardiovascular Exam Cardiovascular: Present RRR *Routine Abdominal Exam Abdominal: Present soft; Absent tenderness
[2023-01-07 14:17] LABS: Hematocrit 29.1 % (37.0-47.0)
[2023-01-07 14:45] LABS: Hemoglobin 9.2 g/dL (12.2-16.2)
--- NOTE | 2023-01-07 15:00 | PC.NURSE ---
Discharge education provided, Questions encouraged and answered. Pt. v/u.
--- NOTE | 2023-01-07 15:20 | PC.NURSE ---
IV removed. Pt. tolerated well. Awaiting pt. ride to arrive.
--- NOTE | 2023-01-07 16:10 | PC.NURSE ---
Pt. left unit via wheelchair, accompanied by staff x1, and family members x2.
--- NOTE | 2023-01-07 16:14 | PC.NURSE ---
10:10: Pt. asleep in bed, P2 sats noted to be down to 92% on RA. 2L O2 applied via NC. Pt. tolerating well. O2 sats up to 98% on 2L.
--- NOTE | 2023-01-07 16:16 | PC.NURSE ---
14:00 late entry : O2 sats at 99% on 2L NC. O2 lowered to 1L. O2 sats noted to be at 98%.
--- NOTE | 2023-01-07 16:17 | PC.NURSE ---
14:30 O2 sats noted to be at 98% on 1L NC. NC removed. O2 sats noted to remain at 98%.
== END 2023-01-07 16:10 | disposition home or self-care (01) | DRG 779 ==
LOC: ER 18:38 → OB 01-06 02:16
PROVIDERS: Obstetrics & Gynecology; Admitting Provider Obstetrics & Gynecology; Emergency Provider Family Medicine; Visit Provider Obstetrics & Gynecology
PROC: 10D07Z6 Extraction of Products of Conception, Vacuum, Via Natural or Artificial Opening (ICD-10-PCS; CPT 58120; principal; 2023-01-06 09:30)
DX: O03.4 Incomplete spontaneous abortion without complication (principal); D62 Acute posthemorrhagic anemia; N93.9 Abnormal uterine and vaginal bleeding, unspecified; N96 Recurrent pregnancy loss
CPT/HCPCS: 59812; 36415; 76856; 80048; 80053; 81001; 81025; 84702; 84703; 85014; 85018; 85025; 86850; 93005; 99285; C9803; J1756; J2405; P9016; U0003; U0005

== ENCOUNTER → 2023-03-15 11:50 | Outpatient (CLI) | payer BC, SELFPAY ==
[2023-03-15 12:32] LABS: HCG,Quantitative 28 mIU/ml (0-5.42)
[2023-03-17 08:39] LABS: Progesterone 28.2 ng/mL (.)
== END ==
PROVIDERS: Visit Provider Obstetrics & Gynecology
DX: Z32.01 Encounter for pregnancy test, result positive (principal)
CPT/HCPCS: 36415; 84144; 84702

== ENCOUNTER → 2023-03-22 11:29 | Outpatient (CLI) | payer BC, SELFPAY ==
[2023-03-22 13:04] LABS: HCG,Quantitative < 2 mIU/ml (0-5.42)
== END ==
PROVIDERS: Visit Provider Obstetrics & Gynecology
DX: Z34.90 Encounter for supervision of normal pregnancy, unspecified, unspecified trimester (principal)
CPT/HCPCS: 36415; 84702

== ENCOUNTER 2023-11-08 12:03 | Emergency (ER) | payer BC, SELFPAY ==
[2023-11-08 12:25] VITALS: BP 122/86; PULSE 76; RESP 19; TEMP 36.8; O2SAT 99; BMI 34.2
--- NOTE | 2023-11-08 12:39 | ED_ITS ---
Discharge Plan Disposition Patient Disposition: Home, Self-Care Condition: Good Referrals Follow up/Referrals: Provider,Referral, MD [Primary Care Provider] - See instructions Activity Restrictions/Add. Instructions Additional Instructions/Restrictions: *Monitor Temp, Over the counter Motrin or Tylenol as directed/as needed Tylenol every 4 hours and Motrin every 6 hours (as long as your family doctor has told you that you can take it) for fever or pain. and straight to ER if unable to lower temp less than 101.0 after medication given *Warm salt water gargles may help to soothe the throat *Throat Lozenges? *Warm fluids like tea with honey may help to soothe the throat? *Sleep elevated *Humidifier/Vaporizer Take medication as prescribed Call OBGYN of your choice and make appointment since you had a positive test today in the [facility] Check with your OBGYN to see what else you can take for nasal congestion Follow up IMMEDIATELY for new or worsening symptoms or no Noticeable improvement over the next 48-72 hours. 911 for difficulty breathing or swallowing Clinical Impressions Clinical Impression: Positive test Sinusitis Qualifiers: Sinusitis location: unspecified location Chronicity: unspecified Qualified Code(s): J32.9 - Chronic sinusitis, unspecified Instructions Patient Instructions: DI for Sinusitis, Diet Discharge ED Provider: Judi Le [facility] [place] HPI General Stated complaint: sinus pain, drainage Mode of Arrival: Ambulatory Source of Information: Patient Limitations: No Limitations Time Seen by Provider: 11/08/23 12:41 Description of Symptoms (Recalled from Triage Doc. by RN): PATIENT C/O SINUS PAIN, PRESSURE AND DRAINAGE X 4 DAYS HEENT Symptoms (Recalled from RN notes): Yes Resp Symptoms (Recalled from RN notes): No Skin Symptoms (Recalled from RN notes): No MS Symptoms (Recalled from RN notes): No Functional Status (Recalled from RN notes): WNL History of Present Illness Provider Complaint: Patient states that for the last 4-5 days she has been having sinus pain and pressure and pressure behind her eyes States that today it was worse so she came in to get checked Related Data Allergies Allergy/AdvReac Type Severity Reaction Status Date / Time hydrocodone Allergy Mild Verified 04/14/23 13:09 paroxetine Allergy Mild Verified 04/14/23 13:09 Worker's Comp Is this a Worker's Comp case?: No [facility] Disclaimer: The information contained in this section may have been updated after the patient was seen, as this information can be updated by other users. Medical History Advanced maternal age during History of fourth degree perineal laceration G1 Irritable bowel syndrome (IBS) Recurrent loss Vulvar varicose veins Surgical History Hx of dilation and curettage Family History Other Family history of Alzheimer's disease Family history of diverticulitis of colon Family history of hypertension Family history of ulcerative colitis Social History Smoking Status: Never smoker alcohol intake: never substance use type: denies use current occupational status: employed Travel in the last 8 weeks: None do you feel safe at home: Yes victim of physical abuse: No victim of emotional abuse: No victim of sexual abuse: No would you like helpful sources: No ROS Obtained: Yes All systems reviewed & no additional complaints except as documented and Yes Systems reviewed as appropriate & no additional complaints except as documented Constitutional Constitutional: Reports system reviewed and no additional complaints, except as documented and Reports as per HPI ENT Ears, Nose, Mouth, and Throat: Reports system reviewed and no additional complaints, except as documented, Reports sinus pain and Reports sinus pressure Cardiovascular Cardiovascular: Reports system reviewed and no additional complaints, except as documented and Reports as per HPI Respiratory Respiratory: Reports system reviewed and no additional complaints, except as documented and Reports as per HPI Gastrointestinal Gastrointestingal: Reports system reviewed and no additional complaints, except as documented and as per HPI Physical Exam General General appearance: alert and in no apparent distress ENT ENT exam: Present mucous membranes moist Expanded ENT Exam Nose exam: Present sinus tenderness Respiratory Respiratory exam: Present normal lung sounds bilaterally; Absent respiratory distress or wheezes Cardiovascular Cardiovascular exam: Present regular rate, normal rhythm and normal heart sounds Neurological Exam Neurological exam: Present alert, oriented X3 and normal gait Medical Decision Making Herman Inquiry Pt receiving controlled substance: No Herman was queried for this patient: No Vital Signs: 01/30/24 12:25 Temperature 98.3 F Temperature Source Oral Pulse Rate [Right Brachial] 76 Respiratory Rate 19 Blood Pressure [Right Arm] 122/86 Blood Pressure Mean [Right Arm] 98 Blood Pressure Source [Right Arm] Automatic Cuff Blood Pressure Position [Right Arm] Sitting 02 Sat by Pulse Oximetry 99 Oxygen Delivery Method Room Air Lab Data Lab results reviewed: Yes I reviewed the patient's lab results. Medical Decision Narrative: Medication discussed with pharmacy to make sure safe for use during pregancy
[2023-11-08 12:53] VITALS: BP 122/86; PULSE 76; RESP 19; TEMP 36.8; O2SAT 99
[2023-11-08 12:54] LABS: UTC Pregnancy Test, Urine Positive (Negative)
== END 2023-11-08 12:57 | disposition home or self-care (01) ==
PROVIDERS: Emergency Provider Nurse Practitioner
DX: J01.90 Acute sinusitis, unspecified (principal); Z32.01 Encounter for pregnancy test, result positive; R09.81 Nasal congestion
CPT/HCPCS: 81025; 99212; 99214; G0463

== ENCOUNTER 2023-11-25 13:39 | Outpatient (CLI) | payer BC, SELFPAY ==
[2023-11-25 15:07] LABS: HCG,Quantitative 10743 mIU/ml (0-5.42)
[2023-11-26 11:13] LABS: Progesterone 13.7 ng/mL (.)
== END 2023-11-25 23:59 ==
LOC: LAB 13:40
PROVIDERS: Visit Provider Obstetrics & Gynecology
DX: Z32.00 Encounter for pregnancy test, result unknown (principal)
CPT/HCPCS: 36415; 84144; 84702

== ENCOUNTER 2023-12-08 14:34 | Outpatient (CLI) | payer BC, SELFPAY ==
[2023-12-08 14:59] LABS: Basophils # 0.1 K/mm3 (0-0.2); Basophils % 0.9 % (0.1-2.0); Eosinophils # 0.1 K/mm3 (0.0-0.4); Eosinophils % 2.1 % (0.1-12.0); Hematocrit 40.6 % (37.0-47.0); Lymphocytes # 1.3 K/mm3 (0.7-4.5); Lymphocytes % 24.8 % (10-50); Mean Corpuscular HGB Conc 31.9 g/dL (31.8-35.4); Mean Corpuscular Hemoglobin 29.5 pg (27.0-31.2); Mean Corpuscular Volume 92.4 fl (81-99); Mean Platelet Volume 8.9 fl (7.4-10.4); Monocytes # 0.3 K/mm3 (0.1-1.0); Monocytes % 5.7 % (1.7-9.3); Neutrophils # 3.5 K/mm3 (1.8-7.8); Neutrophils % 66.4 % (37.0-80.0); Platelet Count 261 K/mm3 (142-424); Red Blood Count 4.39 M/mm3 (4.20-5.40); Red Cell Distribution Width 16.6 % (11.5-17.5); White Blood Count 5.2 K/mm3 (4.8-10.8)
[2023-12-08 15:12] LABS: Alanine Aminotransferase 16 U/L (12-78); Albumin Level 4.2 g/dl (3.5-5.0); Albumin/Globulin Ratio 1.8 (1.1-1.8); Alkaline Phosphatase 56 U/L (38-126); Anion Gap 11.9 mEq/L (5-15); Aspartate Amino Transferase 20 U/L (14-36); Bilirubin,Total 0.3 mg/dl (0.2-1.3); Blood Urea Nitrogen 9 mg/dl (7-17); Calcium 9.3 mg/dl (8.4-10.2); Carbon Dioxide 25 mmol/L (22.0-30.0); Chloride 105 mmol/L (98-107); Estimated Glomerular Filt Rate 111 ml/min (>60); GFR (African American) 134 ML/MIN (>60); Globulin 2.3 g/dL (1.3-3.2); Glucose 98 mg/dl (74-100); Potassium 3.9 mmoL/L (3.5-5.1); Sodium 138 mmol/L (136-145); Total Protein,Serum 6.5 g/dl (6.3-8.2)
[2023-12-09 07:49] LABS: Rubella Antibodies, IgG 1.06 index (Immune >0.99)
[2023-12-09 12:20] LABS: Rapid Plasma Reagin Ab Titer Non Reactive titer (NonRea<1:1)
[2023-12-13 10:14] LABS: HIV Screen 4th Generation wRfx Non Reactive; Hepatitis B Surface Antigen Negative
[2023-12-13 10:15] LABS: Hepatitis C Antibody Non Reactive
== END 2023-12-08 23:59 ==
LOC: LAB 14:35
PROVIDERS: Visit Provider Obstetrics & Gynecology
DX: O09.521 Supervision of elderly multigravida, first trimester (principal); Z3A.09 9 weeks gestation of pregnancy; R11.0 Nausea; R19.7 Diarrhea, unspecified; N96 Recurrent pregnancy loss; Z64.1 Problems related to multiparity; Z87.59 Personal history of other complications of pregnancy, childbirth and the puerperium; Z11.4 Encounter for screening for human immunodeficiency virus [HIV]; B96.89 Other specified bacterial agents as the cause of diseases classified elsewhere
CPT/HCPCS: 36415; 80053; 85025; 86593; 86703; 86762; 86850; 87086; 87340; 87380; G0432

== ENCOUNTER 2023-12-15 06:55 | Outpatient (CLI) | payer BC, SELFPAY ==
--- NOTE | 2023-12-15 06:58 | US_ITS ---
FINAL REPORT CLINICAL HISTORY: right upper quadrant pain/ diarrhea after eating FINDINGS: Sonographic images of the right upper quadrant were obtained. The pancreas is partially obscured.The liver has an unremarkable appearance.The gallbladder appears normal without evidence of gallstones.There is no evidence of biliary ductal dilatation.The common duct measures 2mm. Limited images of the right kidney are unremarkable. IMPRESSION: Unremarkable right upper quadrant ultrasound. Reviewed, Interpreted and Dictated by Drew Garcia III, MD Transcribed by Lulu Brand Authenticated and . [facility]
== END 2023-12-15 23:59 ==
LOC: RAD 06:55
PROVIDERS: Visit Provider Obstetrics & Gynecology
DX: R10.11 Right upper quadrant pain (principal); G89.29 Other chronic pain; O26.891 Other specified pregnancy related conditions, first trimester; Z3A.10 10 weeks gestation of pregnancy
CPT/HCPCS: 76705

== ENCOUNTER 2024-02-16 12:55 | Outpatient (CLI) | payer BC, SELFPAY ==
--- NOTE | 2024-02-16 12:55 | US_ITS ---
PROCEDURE: US OB /MATERNAL DETAIL CLINICAL INDICATION: US OB Complete-20 wk + Anatomy Scan COMPARISON: Office ultrasound 12/08/2023 FINDINGS: Transabdominal sonographic images of the pelvis were obtained. From her established due date she is 19 weeks 0 days. Ultrasound at 9 weeks 0 days confirmed dates. Single viable intrauterine gestation. Cephalic position. Placenta: Posteriorplacenta grade 1. There is a below average amount of fluid. The cervix appears satisfactory. Closed and measuring 3.3 cm in length. Complete survey performed submitted images as in PACS. Multiple anomalies identified on survey imaging by technologist. Active fetus. Three-vessel cord with unsatisfactory visualization of the umbilical cord insertion. 4- chamber heart difficult to evaluate.. There is an intracardiac echogenic foci. Aortic arch, LVOT, RVOT, three-vessel view are not well visualized today. Survey of brain & ventricles. Enlarged ventricles bilaterally. Subjectively decreased brain tissue. Cerebellum, thalamus, choroid plexus, appear abnormal. Face and neck survey. Profile, nasion, lips and nose are not well visualized. Neck appears hyperflexed. Diaphragm and chest views unremarkable. Abdomen: Abdominal contents are not visualized well and the abdominal circumference is 4 weeks behind. Spine: Survey of the spine satisfactory, splaying of the bones of the lower spine seen. Cervical spine is hyperflexed. Both arms and legs noted. Femur length and humerus are 4 weeks behind. Amniotic Fluid: Appears subjectively decreased. Measurements: Average ultrasound age 16weeks 2days. Estimated due date by ultrasound age 1007/31/2024. Estimated weight 124g BPD = 17weeks 2days, <2 percentile HC = 17weeks 0 days, < 2 percentile AC = 15weeks 4days, < 2 percentile FL = 15weeks 0 days, <2 percentile Growth Percentile= < 2 percentile Heart Rate = 132bpm Cerebellum = 15weeks 1day Humerus = 15weeks 5days HC/AC is 1.45 FL/BPD is 0.46 FL/AC is 0.18 IMPRESSION: 1. Viable fetus in the cephalic presentation with a posterior placenta grade 1. 2. The fluid appears subjectively decreased. 3. There are multiple anomalies which are difficult to evaluate due to size and position. 4. The brain tissue appears to be underdeveloped and the ventricles are enlarged. 5. The head appears to be hyperflexed. 6. Cardiac scan appears abnormal. There is an intracardiac echogenic foci. A four-chamber view is not well visualized. The rest of the cardiac scan is not well visualized. 7. The lower spine appears to be splayed. 8. Humerus and femur length are 4 weeks behind. 9. AC is greater than [address] White was present during the exam. 11. A maternal medicine consult has been arranged. Dictated by: Rex White MD 02/16/2024 17:10 Rex White MD in OV 02/16/2024 17:10
== END 2024-02-16 23:59 | disposition home or self-care (01) ==
LOC: RAD 12:55
PROVIDERS: Visit Provider Obstetrics & Gynecology
DX: O09.521 Supervision of elderly multigravida, first trimester (principal); O26.892 Other specified pregnancy related conditions, second trimester; Z3A.20 20 weeks gestation of pregnancy; Z36.3 Encounter for antenatal screening for malformations; N96 Recurrent pregnancy loss
CPT/HCPCS: 76811

== ENCOUNTER 2024-02-21 05:28 | Observation (INO) | payer BC, SELFPAY ==
[2024-02-21 05:30] VITALS: BMI 33.9
[2024-02-21 06:07] LABS: Microscopic, Urine URINE MICROSCOPIC (MICROSCOPIC)
[2024-02-21 06:11] VITALS: BP 123/73; PULSE 74; RESP 18; TEMP 36.5; O2SAT 100; BMI 33.9
[2024-02-21 06:13] LABS: Basophils # 0.1 K/mm3 (0-0.2); Basophils % 1.3 % (0.1-2.0); Eosinophils # 0.2 K/mm3 (0.0-0.4); Eosinophils % 3.1 % (0.1-12.0); Hematocrit 41.2 % (37.0-47.0); Hemoglobin 13.4 g/dL (12.2-16.2); Lymphocytes # 1.6 K/mm3 (0.7-4.5); Lymphocytes % 29.9 % (10-50); Mean Corpuscular HGB Conc 32.5 g/dL (31.8-35.4); Mean Corpuscular Volume 92.2 fl (81-99); Mean Platelet Volume 9.1 fl (7.4-10.4); Monocytes # 0.3 K/mm3 (0.1-1.0); Monocytes % 6.2 % (1.7-9.3); Neutrophils # 3.1 K/mm3 (1.8-7.8); Neutrophils % 59.5 % (37.0-80.0); Platelet Count 218 K/mm3 (142-424); Red Blood Count 4.46 M/mm3 (4.20-5.40); Red Cell Distribution Width 15.7 % (11.5-17.5); White Blood Count 5.2 K/mm3 (4.8-10.8)
[2024-02-21 06:18] LABS: Appearance,Urine CLEAR (Clear); Bilirubin,Urine Negative (Negative); Blood, Urine TRACE-I (Negative); Color,Urine YELLOW (Yellow); Glucose,Urine (UA) Negative (Negative); Ketones,Urine Negative (Negative); Leukocyte Esterase,Urine 1+ (Negative); Nitrate,Urine Negative (Negative); Protein,Urine Negative (Negative); Specific Gravity, Urine 1.025 (1.005-1.030); Urobilinogen,Urine 0.2 EU/dl (0.2)
[2024-02-21 06:50] LABS: Bacteria,Urine 1+ /lpf
[2024-02-21 08:22] LABS: Benzodiazepines Screen,Urine Negative ng/ml (<200)
[2024-02-21 08:23] LABS: Amphetamine/Metha Screen,Urine Negative ng/ml (<1000)
[2024-02-21 08:24] LABS: Barbiturates Screen,Urine Negative ng/ml (<200); Methadone Screen,Urine Negative ng/ml (<300)
[2024-02-21 08:25] LABS: Cannabinoid Screen,Urine Negative ng/ml (<50)
[2024-02-21 08:26] LABS: Cocaine Screen,Urine Negative ng/ml (<300); Opiate Screen,Urine Negative ng/ml (<300)
[2024-02-21 08:27] LABS: Phencyclidine Screen,Urine Negative ng/ml (<25)
[2024-02-21] MEDS: miSOPROStoL 200 MCG TABLET 800 MCG VG (08:48)
--- NOTE | 2024-02-21 08:54 | P.HP_ITS ---
History of Present Illness *Admission Date: 02/21/24 *Reason for visit:: anomalies, intrauterine *History of present illness: She is a 38-year-old 16 para 8 aborta 7 who was seen last week for her anatomy scan. The scan showed severe anomalies with a fetus having hydrocephalus and short limbs. It also had a very small abdominal circumference. The head was folded upon itself. It was thought that there was a possible cystic hygroma seen. She is 19 weeks gestational age. She was seen yesterday in consult at [facility] and intrauterine was diagnosed. As result of that she is admitted today for induction of labor. She declined a D&E. B+ blood, Rubella immune PFSH [facility] Disclaimer: The information contained in this section may have been updated after the patient was seen, as this information can be updated by other users. Medical History Acute sinus infection AMA (advanced maternal age) multigravida 35+ History of depression Advanced maternal age during Irritable bowel syndrome (IBS) Recurrent loss Vulvar varicose veins History of fourth degree perineal laceration Surgical History Hx of dilation and curettage Family History Family history of ulcerative colitis Family history of hypertension Family history of Alzheimer's disease Family history of diverticulitis of colon Social History Smoking Status: Never smoker alcohol intake: never substance use type: denies use current occupational status: employed Travel in the last 8 weeks: None do you feel safe at home: Yes victim of physical abuse: No victim of emotional abuse: No victim of sexual abuse: No would you like helpful sources: No Review of Systems Review of Systems Review of systems:: pertinent systems reviewed and negative unless documented below Meds Home Medications and Allergies Home Medications Medication Instructions Recorded Confirmed Type vitamin #56-iron 35 mg 1 cap PO DAILY 12/08/23 02/01/24 History and 5 mg-folic acid 1 mg-dha capsule ondansetron 4 mg disintegrating 4 mg PO Q6H PRN nausea and 01/04/24 02/01/24 Rx tablet vomiting #30 tabs pantoprazole 40 mg tablet,delayed 40 mg PO DAILY #30 tabs 01/04/24 02/01/24 Rx release (Protonix) azithromycin 250 mg tablet See Rx Instructions PO .COMPLEX #6 02/01/24 02/01/24 Rx tabs New Prescriptions to Start Prescriptions: Allergies Allergy/AdvReac Type Severity Reaction Status Date / Time hydrocodone Allergy Mild Verified 02/01/24 11:05 paroxetine Allergy Mild Verified 02/01/24 11:05 Exam Data for Last 24 hours Vital signs and Labs for Last 24 Hours: Temp Pulse Resp BP Pulse Ox O2 Del Method 97.7 F 74 18 123/73 100 Room Air 02/21/24 06:11 02/21/24 06:11 02/21/24 06:11 02/21/24 06:11 02/21/24 06:11 02/21/24 06:11 Laboratory Results - last 24 hr 02/21/24 05:40: Urine Color Yellow, Urine Appearance Clear, Urine pH 6.0, Ur Specific [place] 1.025, Urine Protein Negative, Urine Glucose (UA) Negative, Urine Ketones Negative, Urine Blood Trace-i, Urine Nitrate Negative, Urine Bilirubin Negative, Urine Urobilinogen 0.2, Ur Leukocyte Esterase 1+ A, Urine RBC 3-5, Urine WBC 3-5, Ur Squamous Epith Cells 10-20, Urine Bacteria 1+, Urine Opiates Screen Negative, Urine Methadone Screen Negative, Ur Barbituates Screen Negative, Ur Phencyclidine Scrn Negative, Ur Amphetamines Screen Negative, U Benzodiazepines Scrn Negative, Urine Cocaine Screen Negative, U Marijuana (THC) Screen Negative 02/21/24 05:55: WBC 5.2, RBC 4.46, Hgb 13.4, Hct 41.2, MCV 92.2, MCH 30.0, MCHC 32.5, RDW 15.7, Plt Count 218, MPV 9.1, Neut % (Auto) 59.5, Lymph % (Auto) 29.9, [place] % (Auto) 6.2, Eos % (Auto) 3.1, Baso % (Auto) 1.3, Neut # (Auto) 3.1, Lymph # (Auto) 1.6, [place] # (Auto) 0.3, Eos # (Auto) 0.2, Baso # (Auto) 0.1, Blood Type B Positive, Antibody Screen Negative, Crossmatch (AHG) See Detail I & O for Last 24 hours: Intake & Output 02/18/24 02/19/24 02/20/24 02/21/24 11:59 11:59 11:59 11:59 Weight 204 lb Constitutional Constitutional: no acute distress *Routine HEENT Exam Head: Present normocephalic Eye: Present EOMI and PERRL ENT: Present mucous membranes moist *Routine Neck Exam Neck: Present supple; Absent lymphadenopathy *Routine Respiratory Exam Respiratory: Present CTA bilaterally *Routine Cardiovascular Exam Cardiovascular: Present RRR *Routine Abdominal Exam Abdominal: Present soft and normoactive bowel sounds; Absent tenderness *Routine Rectal Exam Rectal:: deferred *Routine Genitalia Exam Genitalia:: deferred *Routine Extremities Exam Extremities: Absent cyanosis, clubbing or edema *Routine Skin Exam Skin: Present warm; Absent rash *Routine Neurological Exam Neurological: Present alert and oriented X3 Assessment and Plan *Assessment and plan (1) AMA (advanced maternal age) multigravida 35+: Status: Acute Qualifiers: Trimester: first trimester Qualified Code(s): O09.521 - Supervision of elderly multigravida, first trimester Category: Medical Code(s): O09.529 - Supervision of elderly multigravida, unspecified trimester (2) anomaly necessitating delivery: Status: Acute Qualifiers: Fetus number: single or unspecified fetus Qualified Code(s): O35.9XX0 - Maternal care for (suspected) abnormality and damage, unspecified, not applicable or unspecified Category: Medical Code(s): O35.9XX0 - Maternal care for (suspected) abnormality and damage, unspecified, not applicable or unspecified (3) Intrauterine before 20 weeks of gestation: Status: Acute Category: Medical Code(s): O02.1 - Missed Plan She was seen yesterday at [facility] in consultation and an intrauterine was confirmed. I personally did another ultrasound this morning and also confirmed that there was no heart rate activity. As result of this we have admitted her for induction of labor with Cytotec. We will also get genetic testing on the umbilical cord as well. We will use Cytotec for induction of labor.
--- NOTE | 2024-02-21 09:45 | P.CONPHA_ITS ---
Pharmacy Intervention Comments: MEDICATION RECONCILIATION COMPLETED ON PATIENT USING EXTERNAL FILL HISTORY FROM PHARMACY AND LIST FROM AREA MANAGER OFFICE. -JOSE VENTURAD
--- NOTE | 2024-02-21 09:45 | HMH.PHAINT1 ---
Pharmacy Intervention Comments: MEDICATION RECONCILIATION COMPLETED ON PATIENT USING EXTERNAL FILL HISTORY FROM PHARMACY AND LIST FROM [facility] TECH OFFICE. -JOSE VENTURAD
[2024-02-21] MEDS: miSOPROStoL 200 MCG TABLET 400 MCG VG ×2 (11:52→15:06)
[2024-02-21] MEDS: ACETAMINOPHEN 500MG TAB 1000 MG PO (16:57)
[2024-02-21] MEDS: IBUPROFEN 400 MG TABLET 800 MG PO (16:57)
--- NOTE | 2024-02-21 16:58 | P.PCN_ITS ---
Delivery Note Delivery Date:: 02/21/24 Delivery Time:: 15:57 Anesthesia Type: None Was labor medically induced?: Yes Induction method: per misoprostol protocol Gestational age (weeks): 19 delivered prior to 39 weeks?: Yes Justification for early elective delivery:: Other (Intrauterine at 19 weeks.) Infant Gender: Male at 1 minute: 0 at 5 minutes: 0 Delivery Procedure:: She is a 38-year-old 16 para 8 aborta 7 who is 19 weeks gestational age. She was seen last week and radiology and her fetus was noted to have severe anomalies. She was seen yesterday at [facility] and diagnosed with an intrauterine . As result of that we elected to induce her labor. Ultrasound this morning confirmed the lack of heart rate. She was started with vaginal misoprostol and progressed. She delivered spontaneously a stillborn 19-week size fetus with of 0 at 1 minute and 0 at 5 minutes. She delivered the fetus intact en-caul when she went to the bathroom. Her estimated blood loss was approximately 100 cc. She has B+ blood and is rubella immune. We plan to send an Anora array. We we will send the placenta as well as membranes and a small piece of cord. Placental Delivery Description: Spontaneous
[2024-02-21] MEDS: miSOPROStoL 200 MCG TABLET 400 MCG PO (17:25)
[2024-02-22] MEDS: IBUPROFEN 400 MG TABLET 800 MG PO (08:05)
--- NOTE | 2024-02-22 10:09 | P.DS_ITS ---
General Admission date:: 02/21/24 Discharge date: 02/22/24 HPI HPI HPI: She is a 38-year-old 16 para 8 aborta 7 who was seen last week for her anatomy scan. The scan showed severe anomalies with a fetus having hydrocephalus and short limbs. It also had a very small abdominal circumference. The head was folded upon itself. It was thought that there was a possible cystic hygroma seen. She is 19 weeks gestational age. She was seen yesterday in consult at [facility] and intrauterine was diagnosed. As result of that she is admitted today for induction of labor. She declined a D&E. B+ blood, Rubella immune Hospital Course Hospital Course Hospital Course: On the morning of February 21, 2024 she was started on vaginal Cytotec. She then began having mild contractions and a small amount of vaginal bleeding in the afternoon of February 21, 2024. She went to the bathroom on spontaneously delivered a stillborn infant. Apgars were 0 at 1 minute and 0 at 5 minutes. The fetus and placenta were delivered intact. We sent the placenta, membranes and cord for genetic testing. We also alvino mothers blood for genetic testing. She has done well and has remained afebrile with her hospitalization. She is eating and drinking and ambulating. She denies any fever or chills. She will be discharged home to follow-up with me in a couple weeks time. Her condition on discharge is stable and improved. Exam Data for Last 24 hours Vital signs and Labs for Last 24 Hours: Temp Pulse Resp BP Pulse Ox O2 Del Method 97.7 F 74 18 123/73 100 Room Air 02/21/24 06:11 02/21/24 06:11 02/21/24 06:11 02/21/24 06:11 02/21/24 06:11 02/21/24 06:11 Laboratory Results - last 24 hr 02/21/24 05:55: Crossmatch (AHG) See Detail I & O for Last 24 hours: Intake & Output 02/19/24 02/20/24 02/21/24 02/22/24 11:59 11:59 11:59 11:59 Weight 204 lb Constitutional Constitutional: no acute distress *Routine HEENT Exam Head: Present normocephalic *Routine Neck Exam Neck: Present supple and full ROM *Routine Respiratory Exam Respiratory: Present normal respiratory effort Results Data Completed and Pending Labs on day of discharge: Labs from last 24 hours 02/21/24 05:55 Crossmatch (AHG) See Detail DS: Diagnosis Discharge Diagnosis (1) AMA (advanced maternal age) multigravida 35+: Status: Acute Code(s): O09.529 - Supervision of elderly multigravida, unspecified trimester Qualifiers: Trimester: first trimester Qualified Code(s): O09.521 - Supervision of elderly multigravida, first trimester (2) anomaly necessitating delivery: Status: Acute Code(s): O35.9XX0 - Maternal care for (suspected) abnormality and damage, unspecified, not applicable or unspecified Qualifiers: Fetus number: single or unspecified fetus Qualified Code(s): O35.9XX0 - Maternal care for (suspected) abnormality and damage, unspecified, not applicable or unspecified (3) Intrauterine before 20 weeks of gestation: Status: Acute Code(s): O02.1 - Missed Meds Home Medications and Allergies Home Medications Medication Instructions Recorded Confirmed Type vitamin #56-iron 35 mg 1 cap PO DAILY 12/08/23 02/21/24 History and 5 mg-folic acid 1 mg-dha capsule pantoprazole 40 mg tablet,delayed 40 mg PO DAILY #30 tabs 01/04/24 02/21/24 Rx release (Protonix) ondansetron 4 mg disintegrating 4 mg PO Q6HP PRN nausea and 02/21/24 02/21/24 History tablet vomiting New Prescriptions to Start Prescriptions: Allergies Allergy/AdvReac Type Severity Reaction Status Date / Time hydrocodone Allergy Mild Verified 02/01/24 11:05 paroxetine Allergy Mild Verified 02/01/24 11:05 Discharge Plan Disposition Patient Disposition: Home, Self-Care Discharge Order Discharge Orders: Discharge Order (Routine); Ordered 02/22/24 Ordered By: Rex White Follow up Plan Follow up with: Rex White MD [Staff Physician] - 03/07/24 2:00 pm Prescriptions/Medication Reconciliation: Continued pantoprazole [Protonix] 40 mg tablet,delayed release (DR/EC) 40 mg PO DAILY Qty: 30 2RF PNV #24-yhoa-[id number] acid-dha 35 mg iron-5 mg iron-1 mg capsule 1 cap PO DAILY ondansetron 4 mg tablet,disintegrating 4 mg PO Q6HP PRN (Reason: nausea and vomiting) Problem Reconciliation Problems Reviewed?: Yes Patient Discharge Instructions ACTIVITY: Continue current activity DIET: continue same diet Additional Instructions: Nothing in the vagina for 6 weeks No heavy lifting No strenuous activity Patient Instructions: Dealing With Miscarriage, Depression, Hemorrhage, DI for Miscarriage Providers Primary Care Provider: Provider,Referral Admit Provider: Rex White Attending Provider: Rex White
== END 2024-02-22 10:45 | disposition home or self-care (01) ==
PROVIDERS: Admitting Provider Nurse Practitioner Obstetrics & Gynecology; Visit Provider Nurse Practitioner Obstetrics & Gynecology
DX: O02.1 Missed abortion (principal)
CPT/HCPCS: 80307; 81001; 85025; 86850; 87086; G0378

== ENCOUNTER 2024-03-07 15:07 | Outpatient (CLI) | payer BC, SELFPAY ==
[2024-03-07 16:33] LABS: Basophils # 0.1 K/mm3 (0-0.2); Basophils % 1.2 % (0.1-2.0); Eosinophils # 0.2 K/mm3 (0.0-0.4); Hematocrit 42.5 % (37.0-47.0); Hemoglobin 13.4 g/dL (12.2-16.2); Lymphocytes # 1.5 K/mm3 (0.7-4.5); Lymphocytes % 28.9 % (10-50); Mean Corpuscular HGB Conc 31.6 g/dL (31.8-35.4); Mean Corpuscular Hemoglobin 29.8 pg (27.0-31.2); Mean Corpuscular Volume 94.4 fl (81-99); Monocytes # 0.3 K/mm3 (0.1-1.0); Monocytes % 5.8 % (1.7-9.3); Neutrophils # 3.2 K/mm3 (1.8-7.8); Platelet Count 268 K/mm3 (142-424); Red Cell Distribution Width 15.2 % (11.5-17.5); White Blood Count 5.3 K/mm3 (4.8-10.8)
[2024-03-07 16:57] LABS: Alanine Aminotransferase 16 U/L (12-78); Albumin Level 4.2 g/dl (3.5-5.0); Albumin/Globulin Ratio 1.6 (1.1-1.8); Alkaline Phosphatase 69 U/L (38-126); Anion Gap 13.3 mEq/L (5-15); Aspartate Amino Transferase 26 U/L (14-36); Bilirubin,Total 0.4 mg/dl (0.2-1.3); Blood Urea Nitrogen 11 mg/dl (7-17); Calcium 9.4 mg/dl (8.4-10.2); Carbon Dioxide 27 mmol/L (22.0-30.0); Chloride 101 mmol/L (98-107); Estimated Glomerular Filt Rate 93 ml/min (>60); GFR (African American) 112 ML/MIN (>60); Globulin 2.6 g/dL (1.3-3.2); Glucose 93 mg/dl (74-100); Potassium 4.3 mmoL/L (3.5-5.1); Sodium 137 mmol/L (136-145); Total Protein,Serum 6.8 g/dl (6.3-8.2)
== END 2024-03-07 23:59 | disposition home or self-care (01) ==
LOC: LAB 15:08
PROVIDERS: Visit Provider Nurse Practitioner Obstetrics & Gynecology
DX: O02.1 Missed abortion (principal)
CPT/HCPCS: 36415; 80053; 85025

== ENCOUNTER 2024-06-26 16:31 | Outpatient (CLI) | payer BC, SELFPAY ==
[2024-06-26 16:56] LABS: Basophils # 0.1 K/mm3 (0-0.2); Basophils % 0.8 % (0.1-2.0); Eosinophils # 0.2 K/mm3 (0.0-0.4); Eosinophils % 3.6 % (0.1-12.0); Hematocrit 41.8 % (37.0-47.0); Hemoglobin 12.8 g/dL (12.2-16.2); Lymphocytes # 1.6 K/mm3 (0.7-4.5); Lymphocytes % 25.5 % (10-50); Mean Corpuscular HGB Conc 30.6 g/dL (31.8-35.4); Mean Corpuscular Volume 94.8 fl (81-99); Mean Platelet Volume 8.4 fl (7.4-10.4); Monocytes # 0.4 K/mm3 (0.1-1.0); Monocytes % 6.2 % (1.7-9.3); Neutrophils # 3.9 K/mm3 (1.8-7.8); Platelet Count 245 K/mm3 (142-424); Red Blood Count 4.41 M/mm3 (4.20-5.40); Red Cell Distribution Width 15.3 % (11.5-17.5); White Blood Count 6.2 K/mm3 (4.8-10.8)
[2024-06-26 17:22] LABS: Alanine Aminotransferase 25 U/L (12-78); Albumin Level 4.1 g/dl (3.5-5.0); Albumin/Globulin Ratio 1.6 (1.1-1.8); Alkaline Phosphatase 68 U/L (38-126); Anion Gap 10.1 mEq/L (5-15); Aspartate Amino Transferase 30 U/L (14-36); Bilirubin,Total 0.4 mg/dl (0.2-1.3); Blood Urea Nitrogen 18 mg/dl (7-17); Calcium 9.1 mg/dl (8.4-10.2); Carbon Dioxide 22 mmol/L (22.0-30.0); Chloride 106 mmol/L (98-107); Chol/HDL Ratio 2.1 (1-3.5); Cholesterol 217 mg/dl (140-200); Estimated Glomerular Filt Rate 55 ml/min (>60); GFR (African American) 66 ML/MIN (>60); Globulin 2.6 g/dL (1.3-3.2); Glucose 90 mg/dl (74-100); HDL Cholesterol 105 mg/dl (40-60); Potassium 4.1 mmoL/L (3.5-5.1); Sodium 134 mmol/L (136-145); Total Protein,Serum 6.7 g/dl (6.3-8.2); Triglycerides 70 mg/dl (30-150); VLDL Cholesterol 14 mg/dL (0-40)
[2024-06-26 17:34] LABS: Direct LDL Cholesterol 89.74 mg/dL (100-129)
[2024-06-26 17:40] LABS: T4 (Thyroxine) 5.6 ug/dl (5.53-11.0)
[2024-06-26 17:53] LABS: Thyroid Stimulating Hormone 2.04 uIU/mL (0.465-4.68)
[2024-06-28 08:41] LABS: Estradiol 94.9 pg/mL (.); FSH 1.9 mIU/mL (.); Progesterone 5.9 ng/mL (.); Thyroid Peroxidase Antibodies <9 IU/mL (0-34); Triiodothyronine (T3) Total 59 ng/dL (71-180)
== END 2024-06-26 23:59 | disposition home or self-care (01) ==
LOC: LAB 16:31
PROVIDERS: Visit Provider Nurse Practitioner Obstetrics & Gynecology
DX: E34.9 Endocrine disorder, unspecified (principal)
CPT/HCPCS: 80050; 80053; 80061; 82626; 82670; 83001; 84144; 84436; 84443; 84480; 85025; 86376

== ENCOUNTER 2024-07-06 09:48 | Outpatient (CLI) | payer BC, SELFPAY ==
[2024-07-13 11:19] LABS: Testosterone, Total, LC/MS 33.2 ng/dL (.)
== END 2024-07-06 23:59 | disposition home or self-care (01) ==
LOC: LAB 09:49
PROVIDERS: Visit Provider Nurse Practitioner Obstetrics & Gynecology
DX: E34.9 Endocrine disorder, unspecified (principal)
CPT/HCPCS: 36415; 82787

== ENCOUNTER 2024-11-08 08:13 | Outpatient (CLI) | payer BC, SELFPAY ==
--- NOTE | 2024-11-08 | CA_ITS ---
FINAL REPORT TECHNIQUE: Color Doppler, duplex Doppler and novak scale sonography of the bilateral neck arterial vasculature was performed. Velocities were measured in the carotid arteries. Stenosis evaluation based on the validated velocity criteria. CLINICAL HISTORY: TIA,DISORIENTATION,MIGRAINES FINDINGS: The peak systolic velocity of the right common carotid artery is 135 cm/s. The peak systolic velocity of the right internal carotid artery is 131 cm/s and end diastolic velocity 23 cm/s. The ICA/CCA ratio is 0.97. A small amount of plaque is present. The right external carotid artery is patent. The right vertebral artery is patent with antegrade flow. The peak systolic velocity of the left common carotid artery is 147 cm/s. The peak systolic velocity of the left internal carotid artery is 117 cm/s and end diastolic velocity 35 cm/s. The ICA/CCA ratio is 0.98. A small amount of plaque is present. The left external carotid artery is patent.The left vertebral artery is patent with antegrade flow. IMPRESSION: Less than 50% bilateral carotid stenoses. Bilateral patent vertebral arteries with antegrade flow. If indicated, CTA or MRA could further evaluate. Reviewed, Interpreted and Dictated by Mir Biggs MD Transcribed by Annetta Kay Authenticated and [facility]
--- NOTE | 2024-11-08 08:34 | MR_ITS ---
FINAL REPORT CLINICAL HISTORY: HX OF MIGRANES, DISORINATION X FEW MONTHS LAST 2 MONTHS HAS GOTTEN WORSE , VISION BLURRY AND WHOOSING IN EARS COMPARISON: None FINDINGS: Multi planar MR imaging was obtained through the brain without contrast. The midline structures appear intact. There is no evidence of Chiari malformation. On T2 and flair axial images the brain parenchyma is homogeneous. On diffusion-weighted images there is no evidence of restricted diffusion. The visualized paranasal sinuses demonstrate normal signal voids. The seventh and eighth nerve root complexes are intact. IMPRESSION: Essentially unremarkable nonenhanced brain MRI. Reviewed, Interpreted and Dictated by Mir Biggs MD Transcribed by Safia Bravo Authenticated and [facility] [place]
--- NOTE | 2024-11-08 08:37 | MR_ITS ---
FINAL REPORT CLINICAL HISTORY: BILAT-HX OF TIA,DISORIENTATION,MIGRAINES X FEW MONTHS GOTTEN WORSE IN A LAST 2 MONTHS, VISION BLURRY AND WHOOSING IN EARS COMPARISON: None FINDINGS: Multiple projection images of the brain arterial vasculature were obtained without contrast. Raw data images were also reviewed. The internal carotid arteries are patent. The middle cerebral arteries and visualized proximal branches are patent. The anterior cerebral arteries are patent. The intracranial vertebral arteries are patent. The basilar artery is patent. The posterior cerebral arteries are patent. Only a single lateral view of the brain venous vasculature was obtained. The posterior aspect of the superior sagittal sinus is not seen on this examination. No gross abnormality of the venous vasculature is identified. IMPRESSION: No major vessel occlusion. Reviewed, Interpreted and Dictated by Mir Biggs MD Transcribed by Safia Bravo Authenticated and [facility]
== END 2024-11-08 23:59 | disposition home or self-care (01) ==
LOC: RT 08:14
PROVIDERS: PCP Internal Medicine Adolescent Medicine; Visit Provider Internal Medicine Adolescent Medicine
DX: R41.0 Disorientation, unspecified (principal); Z86.69 Personal history of other diseases of the nervous system and sense organs; Z86.73 Personal history of transient ischemic attack (TIA), and cerebral infarction without residual deficits
CPT/HCPCS: 70544; 70551; 93880